=== PATIENT | male | born 1940 | race Caucasian/White ===

== ENCOUNTER 2016-12-17 13:55 | Outpatient (CLI) | payer MEDICARE, BC | END 2016-12-17 23:59 | DX: E87.1 Hypo-osmolality and hyponatremia (principal); R97.20 Elevated prostate specific antigen [PSA]; F10.99 Alcohol use, unspecified with unspecified alcohol-induced disorder; E78.5 Hyperlipidemia, unspecified ==

== ENCOUNTER 2016-12-18 12:25 | Outpatient (CLI) | payer MEDICARE, BC | END 2016-12-18 12:26 | disposition home or self-care (01) | DX: R97.20 Elevated prostate specific antigen [PSA] (principal) ==

== ENCOUNTER 2017-04-23 12:00 | Inpatient (IN) | payer MEDICARE, BC ==
--- NOTE | 2017-04-23 12:39 | ED Physician Documentation ---
PD HPI SYNCOPE - Stated complaint Stated Complaint: SYNCOPE - Chief complaint Chief Complaint: General - History obtained from History obtained from: Patient, Family - History of Present Illness Witnessed: Witnessed Timing - onset: How many hours ago (2) Duration: Seconds (3-5) Preceding symptoms: None Associated symptoms: None. No: Seizure, Incontinant of urine, Incontinant of stool, Headache, Vision changes, Chest pain, Palpitations, Diaphoresis, Dyspnea , Nausea / vomiting, Abdominal pain Contributing factors: Other (eating breakfast) Injury occurred: Fell (head fell onto table). 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 This was witnessed by his . Lasted 3-5 seconds. No prodrome. States he has passed out twice before in his life. 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 He was recently changed from lisinopril to losartan for his blood pressure. He was changed because he has a chronic dry cough. Patient also states that he had a carotid endarterectomy on the left side approximately 2 years ago. Denies any history of heart problems. Review of Systems Ten Systems: 10 systems reviewed and negative Constitutional: denies: Fever, Chills Eyes: denies: Loss of vision, Decreased vision, Photophobia Nose: denies: Rhinorrhea / runny nose, Congestion Throat: denies: Sore throat Cardiac: denies: Chest pain / pressure Respiratory: reports: Cough (Chronic, dry, unchanged) GI: denies: Abdominal Pain, Nausea, Vomiting, Diarrhea Skin: denies: Rash Musculoskeletal: denies: Neck pain, Back pain Neurologic: denies: Focal weakness, Numbness, Headache PD PAST MEDICAL HISTORY - Past Medical History Past Medical History: Yes Cardiovascular: Hypertension, High cholesterol Respiratory: None Endocrine/Autoimmune: None GI: Colon polyps : Benign prostate hypertrophy HEENT: None Psych: None Musculoskeletal: None Derm: None - Past Surgical History Past Surgical History: Yes General: Appendectomy, Colonoscopy, Other Ortho: Other - Present Medications Home Medications: Ambulatory Orders Medication Instructions Recorded Confirmed Aspirin [Aspir 81] 81 mg PO QPM 12/13/13 04/23/17 Finasteride 5 mg PO DAILY 12/13/13 04/23/17 Losartan [Cozaar] 100 mg PO QPM 04/23/17 04/23/17 Propranolol HCl [Propranolol HCl 160 mg PO DAILY 04/23/17 04/23/17 ER] Simvastatin 10 mg PO QPM 04/23/17 04/23/17 hydroCHLOROthiazide [Hydrodiuril] 25 mg PO DAILY 04/23/17 04/23/17 - Allergies Allergies/Adverse Reactions: Allergies Allergy/AdvReac Type Severity Reaction Status Date / Time No Known Drug Allergies Allergy Verified 04/23/17 12:15 - Social History Does the pt smoke?: No Smoking Status: Never smoker Does the pt drink ETOH?: Yes ETOH Use: Beer Does the pt have substance abuse?: No - Immunizations Immunizations are current?: Yes - POLST Patient has POLST: No PD ED PE NORMAL - Vitals Vital signs reviewed: Yes - General General: Alert and oriented X 3, Well developed/nourished - HEENT HEENT: PERRL, Moist mucous membranes - Neck Neck: Supple, no meningeal sign, No JVD, No bruit - Cardiac Cardiac: RRR, No murmur, No gallop, No rub, Strong equal pulses - Respiratory Respiratory: No respiratory distress, Clear bilaterally - Abdomen Abdomen: Soft, Non tender, Non distended - Back Back: No CVA TTP, No spinal TTP - Derm Derm: Warm and dry - Extremities Extremities: No tenderness to palpate, Normal ROM s pain, No calf tenderness / cord - Neuro Neuro: Alert and oriented X 3, brim and crown presser 2-12 intact, No motor deficit, No sensory deficit, Normal speech - Psych Psych: Normal mood, Normal affect Results - Vitals Vitals: Vital Signs - 24 hr 04/23/17 04/23/17 04/23/17 12:05 12:59 14:05 Temperature 36.7 C Heart Rate 68 71 62 Heart Rate [ Brachial] Respiratory 15 17 Rate Blood Pressure 192/96 H 164/77 H 164/74 H Blood Pressure [Left Brachial artery] O2 Saturation 99 95 95 04/23/17 04/23/17 15:23 16:37 Temperature 36.6 C Heart Rate 65 Heart Rate [ 61 Brachial] Respiratory 17 20 Rate Blood Pressure 173/82 H Blood Pressure 166/91 H [Left Brachial artery] O2 Saturation 96 99 Oxygen O2 Source Room air - EKG (time done) 1233 Rate: Rate (enter#) (70) Rhythm: NSR [place]: Normal Intervals: 1st degree AVB QRS: Normal Ischemia: Normal ST segments, Q waves (III, aVF) - Labs Labs: Laboratory Tests 04/23/17 04/23/17 04/23/17 12:55 12:55 12:55 WBC 6.5 RBC 4.47 L Hgb 14.6 Hct 41.5 L MCV 92.7 MCH 32.7 H MCHC 35.2 RDW 12.4 Plt Count 222 MPV 7.3 L Neut # 4.6 Lymph # 0.9 L [place] # 0.5 Eos # 0.4 Baso # 0.1 Absolute Nucleated RBC 0.00 Nucleated RBCs 0.0 Sodium 130 L Potassium 4.2 Chloride 94 L Carbon Dioxide 28 Anion Gap 8.0 BUN 13 Creatinine 1.0 Estimated GFR (MDRD) 72 L Glucose 117 H Calcium 9.0 Total Bilirubin 0.7 AST 18 ALT 15 Alkaline Phosphatase 57 Troponin I < 0.04 Total Protein 6.1 L Albumin 3.7 Globulin 2.4 Albumin/Globulin Ratio 1.5 Lipase 31 Urine Color Urine Clarity Urine pH Ur Specific [place] Urine Protein Urine Glucose (UA) Urine Ketones Urine Occult Blood Urine Nitrite Urine Bilirubin Urine Urobilinogen Ur Leukocyte Esterase Ur Microscopic Review Urine Culture Comments 04/23/17 13:21 WBC RBC Hgb Hct MCV MCH MCHC RDW Plt Count MPV Neut # Lymph # [place] # Eos # Baso # Absolute Nucleated RBC Nucleated RBCs Sodium Potassium Chloride Carbon Dioxide Anion Gap BUN Creatinine Estimated GFR (MDRD) Glucose Calcium Total Bilirubin AST ALT Alkaline Phosphatase Troponin I Total Protein Albumin Globulin Albumin/Globulin Ratio Lipase Urine Color YELLOW Urine Clarity CLEAR Urine pH 6.5 Ur Specific [place] 1.010 Urine Protein NEGATIVE Urine Glucose (UA) NEGATIVE Urine Ketones NEGATIVE Urine Occult Blood NEGATIVE Urine Nitrite NEGATIVE Urine Bilirubin NEGATIVE Urine Urobilinogen 0.2 (NORMAL) Ur Leukocyte Esterase NEGATIVE Ur Microscopic Review NOT INDICATED Urine Culture Comments NOT INDICATED - Rads (name of study) cxr Radiology: Prelim report reviewed, EMP read contemporaneously, See rad report ( No acute disease) PD MEDICAL DECISION MAKING - ED course Complexity details: reviewed old records, reviewed results, re-evaluated patient , considered differential, d/w patient, d/w family, d/w wine consultant ED course: Patient is a 77-year-old gentleman who presents to the emergency department after a syncopal event today. There was no prodrome prior to the syncope. No chest pain. No palpitations. His EKG shows a first-degree AV block. No arrhythmias noted on telemetry here. No acute laboratory issues to explain his symptoms. Did recently change from lisinopril to losartan. Given his lack of prodrome, age and comorbidities, I feel it is reasonable to place him in observation in the hospital. He may benefit from a carotid ultrasound as well. Discussed the case with Dr. Rodriguez, hospitalist who accepts. This document was made in part using voice recognition software. While efforts are made to proofread this document, sound alike and grammatical errors may occur. Departure - Departure Disposition: ED Place in Observation Clinical Impression: Syncope Qualifiers: Syncope type: unspecified Qualified Code(s): R55 - Syncope and collapse Hypertension Qualifiers: Hypertension type: essential hypertension Qualified Code(s): I10 - Essential ( primary) hypertension Condition: Good Discharge Date/Time: 04/23/17 16:06
[2017-04-23 13:03] LABS: BASOPHILS # (AUTO) 0.1 10^3/uL (0.0-0.1); BASOPHILS % (AUTO) 1.2 %; EOSINOPHILS # (AUTO) 0.4 10^3/uL (0.0-0.7); EOSINOPHILS % (AUTO) 5.7 %; HCT - HEMATOCRIT 41.5 % (42.0-52.0); HGB - HEMOGLOBIN 14.6 g/dL (14.0-18.0); LYMPHOCYTES # (AUTO) 0.9 10^3/uL (1.5-3.5); LYMPHOCYTES % (AUTO) 13.4 %; MEAN CORPUSCULAR HEMOGLOBIN 32.7 pg (27.0-31.0); MEAN CORPUSCULAR HGB CONC 35.2 g/dL (32.0-36.0); MEAN CORPUSCULAR VOLUME 92.7 fL (80.0-94.0); MEAN PLATELET VOLUME 7.3 fL (7.4-11.4); MONOCYTES # (AUTO) 0.5 10^3/uL (0.0-1.0); MONOCYTES % (AUTO) 8.4 %; NEUTROPHILS # (AUTO) 4.6 10^3/uL (1.5-6.6); NEUTROPHILS % (AUTO) 71.3 %; RED BLOOD COUNT 4.47 10^6/uL (4.70-6.10); RED CELL DISTRIBUTION WIDTH 12.4 % (12.0-15.0); UNCORRECTED WHITE BLOOD COUNT 6.5 x10^3/uL; WHITE BLOOD COUNT 6.5 x10^3/uL (4.8-10.8)
[2017-04-23 13:21] LABS: ALBUMIN/GLOBULIN RATIO 1.5 (1.0-2.2); BILIRUBIN,TOTAL 0.7 mg/dL (0.2-1.0); POTASSIUM 4.2 mmol/L (3.5-5.0); TOTAL PROTEIN 6.1 g/dL (6.7-8.2)
[2017-04-23 13:32] LABS: BILIRUBIN,URINE NEGATIVE (NEGATIVE); PH,URINE 6.5 PH (5.0-7.5)
[2017-04-23 13:48] LABS: UA CHARGE (STRIP ONLY) YES; UR CULTURE IF IND NOT INDICATED
--- NOTE | 2017-04-23 14:17 | XRAY Preliminary Report ---
Exam: XR Chest 1 View IMPRESSION: No acute intrathoracic plain film abnormality. [facility] SITE ID: [id number]
--- NOTE | 2017-04-23 14:19 | XRAY Report ---
EXAM: CHEST RADIOGRAPHY EXAM DATE: 04/23/2017 01:55 PM. CLINICAL HISTORY: Cough, syncope. COMPARISON: None. TECHNIQUE: 1 view. FINDINGS: Lungs/Pleura: No focal opacities evident. No pleural effusion. No pneumothorax. Mediastinum: Within exam limitations, cardiomediastinal contour is normal. Other: None. IMPRESSION: No acute intrathoracic plain film abnormality. [facility] Referring Provider Line: [phone] SITE ID: [id number]
[2017-04-23] MEDS ORDERED: SODIUM CHLORIDE FLUSH 0.9% 10 ML SYRINGE IVP PRN (15:19)
[2017-04-23] MEDS ORDERED: HYDROcod/ACETAM 5/325 MG TABLET PO PRN (15:19)
[2017-04-23] MEDS ORDERED: ACETAMINOPHEN 325 MG TABLET PO PRN (15:19)
[2017-04-23] MEDS ORDERED: ONDANSETRON 4 MG/2 ML VIAL IVP PRN (15:19)
[2017-04-23] MEDS ORDERED: IOPAMIDOL-300 100 ML VIAL IVP ONE (16:29)
--- NOTE | 2017-04-23 17:13 | CT Preliminary Report ---
Exam: CT Neck Angio IMPRESSION: 1. Right carotid circulation: Moderate atherosclerotic calcification at the CCA bifurcation. Moderate , 50%, stenosis is seen at the origin of the ICA. 2. Left carotid circulation: Postoperative change from left carotid endarterectomy is seen. No signif icant stenosis. 3. Right vertebral artery circulation: Right vertebral artery is dominant and widely patent. 4. 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 Nonopacification of the V1 and proximal V2 segment is seen. Opacification of small caliber the tube , V3, and V4 segments is seen. This could be secondary to retrograde filling from the right VA versus collateral opacification and antegrade flow. (By report this is apparently new compared to prior ult rasound study). 5. Intracranial circulation: Mild stenosis is seen at the junction of the right vertebral artery and basilar artery. Note neither P-comm is evident. Critical result: Findings are discussed with referring physician, Dr. Eleno Rodriguez, on 04/23/2017 at 1703 hrs. [facility] SITE ID: [id number]
--- NOTE | 2017-04-23 17:16 | CT Report ---
EXAM: CT ANGIOGRAM NECK EXAM DATE: 04/23/2017 04:29 PM. CLINICAL HISTORY: Syncope. COMPARISON: Report of carotid Doppler ultrasound 07/03/2015. TECHNIQUE: Routine axial helical imaging was performed from the skull base through the aortic arch. I V Contrast: 100 cc [id number]. Reconstructions: Routine multiplanar 3D MIP reconstructions. Evaluatio n of arterial stenosis is based on a NASCET method of measurement. In accordance with CT protocol optimization, one or more of the following dose reduction techniques w ere utilized for this exam: automated exposure control, adjustment of mA and/or KV based on patient s ize, or use of iterative reconstructive technique. FINDINGS: Mild tortuosity and calcification is seen at the aortic arch. Normal three-vessel branching is seen off the aortic arch. Mild atherosclerotic calcification is seen at the origin of the left common carotid artery. Vascular calcifications are seen at the bifurcation of the right brachiocephalic artery. Great vessels off the arch are patent. Right Carotid: The CCA is patent and unremarkable. Moderate atherosclerotic intimal thickening and ca lcification is seen at the CCA bifurcation and origin of the ICA. Moderate, 50%, stenosis is seen at the ICA origin. Distal to this the cervical ICA is patent and unremarkable. No dissection. The ECA demonstrates atherosclerotic calcification at its origin with mild stenosis. The ECA is paten t. Left Carotid: The CCA is patent and unremarkable. Postoperative change from CEA is evident. Carotid b ifurcation is patent and unremarkable. Cervical ICA is unremarkable. No dissection. The ECA is patent and unremarkable. Vertebrals: Right vertebral artery: Widely patent and unremarkable. No significant atherosclerotic change. No dis section. Left vertebral artery: Occluded at its origin. Non-opacification of the V1 and proximal V2 segments. Opacification of small caliber distal V2, V3, and V4 segments is seen. It is unclear whether this is secondary to collateral antegrade flow or retrograde filling. Intracranial Circulation: No stenoses or aneurysms of the visualized vessels. Moderate vascular calc ifications are seen in the cavernous ICA. No significant stenosis. Neither P-comm is identified. The right vertebral artery is dominant forming the basilar artery. Mild stenosis is seen at the junct ion of the right vertebral artery and basilar artery. Distal to this the basilar artery and bifurcati on is patent and unremarkable. Intracranial left vertebral artery is small in caliber. Other: The lung apices are clear. The muscle and fascial planes of the neck are unremarkable. Mild cervical spondylosis is present. IMPRESSION: 1. Right carotid circulation: Moderate atherosclerotic calcification at the CCA bifurcation. Moderate , 50%, stenosis is seen at the origin of the ICA. 2. Left carotid circulation: Postoperative change from left carotid endarterectomy is seen. No signif icant stenosis. 3. Right vertebral artery circulation: Right vertebral artery is dominant and widely patent. 4. 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 Nonopacification of the V1 and proximal V2 segment is seen. Opacification of small caliber the tube , V3, and V4 segments is seen. This could be secondary to retrograde filling from the right VA versus collateral opacification and antegrade flow. (By report this is apparently new compared to prior ult rasound study). 5. Intracranial circulation: Mild stenosis is seen at the junction of the right vertebral artery and basilar artery. Note neither P-comm is evident. Critical result: Findings are discussed with referring physician, Dr. Eleno Rodriguez, on 04/23/2017 at 1703 hrs. [facility] Referring Provider Line: [phone] SITE ID: [id number]
--- NOTE | 2017-04-23 17:29 | HISTORY & PHYSICAL EXAMINATION ---
DATE OF ADMISSION: 04/23/2017 PRIMARY CARE PHYSICIAN: Isael King D.O. CHIEF COMPLAINT: The patient's chief complaint is passing out. IDENTIFYING INFORMATION: The patient and his , Kiley, are present and give the bulk of the history. They both appear cogent, consistent, and thorough. The is able to describe a portion of the history that he cannot because he is passed out. The patient's history is supplemented by the hand-off from the Emergency Department Physician, Dereck Casas M.D., as well as personal review of the past medical records and the data collected during this visit. All were used in the evaluation of this person in the preparation of this document. HISTORY OF PRESENT ILLNESS: He and his , Kiley, were sitting at breakfast around 10:15 and had taken about half their breakfast. They were talking. She noted movement and turned to see her starting to go forward in the chair while he was sitting. She got out of her chair, hurried over, and grabbed him by the shoulders from behind to pull him back. She did prevent him from his face hitting the table. He shook violently, according to her. He was unconscious. In a few seconds, he responded to her name, the shaking also ceased, and he was able to answer questions. He thought he was just having a dream. He did not remember the event or the dream, but he says that is not unusual. He does not remember his dreams. REVIEW OF SYSTEMS: There was a complete review of systems which was negative, except as noted above. The patient says she does have problems chronically with urination and nocturia. There is nothing new. Specifically, he denies any fever, chills, sweats, cough, and sore throat. No nausea, vomiting, or diarrhea. He has had no headache or numbness. The patient has chronic back pain. PAST MEDICAL HISTORY Remarkable for: 1. Hypertension. 2. Hypercholesterolemia. 3. BPH. 4. Also colon polyps. PAST SURGICAL HISTORY: The patient's past surgeries are positive for an appendectomy and colonoscopy. He has had a carotid endarterectomy. ALLERGIES: NONE KNOWN. MEDICATIONS 1. Aspirin 81 mg a day. 2. Finasteride 5 mg a day. 3. Hydrochlorothiazide 12.5 mg daily. 4. Simvastatin 40 mg a day. 5. Losartan 100 mg a day. 6. Naproxen 500 mg a day. 7. Propranolol ER 200 mg daily. PERSONAL AND SOCIAL HISTORY: The patient was born in 1940 in [facility]. His parents were missionaries. He lived about a year and then moved to [place] with his mother and aunt. Then, his father was killed when the Germans took over the country. The patient subsequently moved to [place] and went to high school. He graduated [employer] in [facility]. He subsequently went to [employer] for two years and then to [employer]. 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 The patient smoked a pack a day until 1989, when he moved up to [place], and cigarettes were too expensive. The patient drinks beer. He says not daily, but told the nurse that it was daily three to six beers. FAMILY HISTORY: The patient's family history is negative for diabetes, positive for cancer, and positive for heart disease. PHYSICAL EXAMINATION VITAL SIGNS: Temperature 36.7. Pulse 68. Respirations 15. Blood pressure 192 /96 and later 164/76. The patient's O2 saturation is 95% on room air. CONSTITUTIONAL: A well-developed and well-nourished male who appears younger than stated age. He is in no acute distress. EYES: Extraocular movements are within normal limits. PERRL. Nonicteric. MOUTH AND THROAT: Moist mucous membranes. No other pathology. NECK: No lymphadenopathy. No bruits. No JVD. No thyromegaly. CHEST WALL: Nontender. Symmetric. HEART: Sinus rhythm. No murmur, rubs, or clicks heard. LUNGS: Clear. Good air movement bilaterally. ABDOMEN: Thick abdominal wall. Soft and nontender. No hepatosplenomegaly noted. RECTAL: Exam was not done. GENITAL: Exam was not done. EXTREMITIES: No edema. VASCULAR: On vascular exam, he has no palpable pulses in the posterior tibial. The patient does have normal capillary refill. No cyanosis. NEUROLOGICAL: Cognition intact. Cranial nerves intact. Motor intact. The patient's gait is not tested. SKIN: The patient's skin exam has no suspicious lesions or dermatitis on limited exam. DIAGNOSTIC DATA: He had an EKG that showed a normal sinus rhythm with a first degree AV block. No abnormalities of QRS, ST, or T waves. He does have Q- waves in III and F. The patient's white count was 6.5, hemoglobin and hematocrit 14 and 41, and platelets were 222. The patient's sodium was 130, potassium was 4.2, the patient's chloride was 94, CO2 was 28, BUN 13, creatinine 1.0, glucose 117, and calcium 9.0. Normal liver enzymes. Troponin was less than 0.04. Albumin was 3.7. The patient's urine revealed a specific gravity of 1.010, and pH was 6.5. Microscopic was negative. PATIENT SUMMARY: This is a 77-year-old male who at the breakfast table passed out for a short time. The patient has hypertension, BPH, and high cholesterol. He has had no recent syncopal episodes. He did have one two to three years ago. At that time, he had a prodrome. The patient is placed in observation for further workup. DIAGNOSES The diagnoses are: 1. Syncope. 2. Hypertension. 3. BPH. 4. Hypercholesterolemia. DISCUSSION AND DECISION MAKING 1. The etiology of the syncope is uncertain and likely to be a seizure, and less likely to be a vagal or vascular episode. Therefore, the most likely is an arrhythmia. The patient will have telemetry, a CT angiogram, and an echocardiogram. 2. Hypertension: Medications will be adjusted as needed to control his blood pressure, with systolic blood pressure less than 150. 3. BPH: His usual home medicines will be continued. No other workup at this time. 4. Hypercholesterolemia: We will continue his home statin. 5. The patient will also get an ESR in the unlikely event that this is the result of an inflammatory condition such as temporal arteritis or PMR. He will also get a TSH for possible thyroid. He has a mildly elevated glucose, so an A1c will also be ordered. This is not felt to be the etiology for his syncope, however. HOSPITAL ISSUES 1. CODE STATUS: HE MAINTAINS A FULL CODE STATUS. 2. Venous thromboembolism prophylaxis, which will be Lovenox subcutaneous. 3. Diet will be a regular diet at this point. 4. His tubes and lines will be just peripheral IV presently. 5. Hospital status: The patient will be placed in observation, and the expectation is less than two nights for discharge. 6. Estimated length of stay is less than two nights. 7. Disposition, which is expected to be home. JOB #: [id number] EXT JOB #:[id number] MTDJack
[2017-04-23] MEDS: SODIUM CHLORIDE FLUSH 0.9% 10 ML SYRINGE IVP SCH (20:08)
[2017-04-23] MEDS ORDERED: ATORVASTATIN 10 MG TABLET PO SCH (21:00)
[2017-04-23] MEDS ORDERED: GLUCAGON 1 MG/ML VIAL IVP SCH (21:14)
[2017-04-23] MEDS ORDERED: PROMETHAZINE 12.5 MG SUPP PR PRN (21:17)
[2017-04-23] MEDS ORDERED: ONDANSETRON 4 MG/2 ML VIAL IVP SCH (22:00)
[2017-04-23] MEDS ORDERED: WATER FOR INJECTION,STERILE 10 ML ONE (22:25)
[2017-04-24 06:30] LABS: BASOPHILS % (AUTO) 0.6 %; EOSINOPHILS # (AUTO) 0.4 10^3/uL (0.0-0.7); EOSINOPHILS % (AUTO) 5.8 %; HGB - HEMOGLOBIN 14.7 g/dL (14.0-18.0); LYMPHOCYTES # (AUTO) 1.4 10^3/uL (1.5-3.5); MEAN CORPUSCULAR HEMOGLOBIN 32.8 pg (27.0-31.0); MEAN CORPUSCULAR HGB CONC 34.9 g/dL (32.0-36.0); MEAN CORPUSCULAR VOLUME 93.8 fL (80.0-94.0); MEAN PLATELET VOLUME 7.2 fL (7.4-11.4); MONOCYTES # (AUTO) 0.7 10^3/uL (0.0-1.0); MONOCYTES % (AUTO) 9.8 %; NEUTROPHILS # (AUTO) 4.3 10^3/uL (1.5-6.6); NEUTROPHILS % (AUTO) 62.8 %; RED BLOOD COUNT 4.48 10^6/uL (4.70-6.10); RED CELL DISTRIBUTION WIDTH 12.6 % (12.0-15.0); UNCORRECTED WHITE BLOOD COUNT 6.8 x10^3/uL; WHITE BLOOD COUNT 6.8 x10^3/uL (4.8-10.8)
[2017-04-24 06:41] LABS: ALBUMIN/GLOBULIN RATIO 1.6 (1.0-2.2); BILIRUBIN,TOTAL 0.8 mg/dL (0.2-1.0); CALCIUM 8.7 mg/dL (8.5-10.3); CREATININE 0.8 mg/dL (0.6-1.2); MAGNESIUM 1.9 mg/dL (1.7-2.8); POTASSIUM 3.8 mmol/L (3.5-5.0); TOTAL PROTEIN 5.8 g/dL (6.7-8.2)
[2017-04-24] MEDS: SODIUM CHLORIDE FLUSH 0.9% 10 ML SYRINGE IVP SCH (06:43)
[2017-04-24 07:05] LABS: HEMOGLOBIN A1C 0.57 g/dL
--- NOTE | 2017-04-24 08:49 | PROVIDER PROGRESS NOTE ---
Assessment/Plan - Problem List (1) Syncope Qualifiers: Syncope type: unspecified Qualified Code(s): R55 - Syncope and collapse Assessment/Plan: He had no syncopal episodes last night. He did have several sinus pauses with eating which the Inderal maybe a significant contributing factor. (2) Arrhythmia, bulmaro Assessment/Plan: He had the sinus pauses concurrent with the swallowing. He has had a long time problem with this. He was noted to have it when swallowing water as well. Inderal has been stopped. (3) Dysphagia Assessment/Plan: Will do esophagram and clinical swallow eval to determine the etiology of the problem. Dario is quite irritable this am which may be the result of no alcohol overnight. He may need some of the W/U as outpatient. - Current Meds Current Meds: Current Medications Generic Name Dose Route Start Last Admin Trade Name Freq PRN Reason Stop Dose Admin Atorvastatin Calcium 20 mg 04/23/17 21:00 04/23/17 20:08 Lipitor PO 20 mg QPM ALY Administration Sodium Chloride 10 ml 04/23/17 22:00 04/24/17 06:43 Normal Saline Flush 0.9% IVP 10 ml Q8HR ALY Administration - Lab Result Fish Bone Diagrams: 04/24/17 06:20 04/24/17 06:20 - Additional Planning My Orders: My Active Orders 04/24/17 08:21 Esophogram [FL] Routine Clinical Swallow Eval w/Modified ST [ST] Routine 04/24/17 08:22 NPO [DIET] Subjective - Subjective Patient Reports: Resting Comfortably Nursing Reports: No Complaints Objective Vital Signs: Vital Signs - 24 hr 04/23/17 04/23/17 04/23/17 20:55 22:15 22:30 Temperature 36.3 C L Heart Rate [ 64 68 69 Brachial] Respiratory 18 17 18 Rate Blood Pressure 156/89 H 168/82 H 163/76 H [Left Brachial artery] O2 Saturation 94 96 96 04/23/17 04/23/17 04/23/17 22:45 23:00 23:59 Temperature 36.8 C Heart Rate [ 69 70 67 Brachial] Respiratory 17 19 17 Rate Blood Pressure 161/80 H 157/69 H 143/67 H [Left Brachial artery] O2 Saturation 95 94 94 04/24/17 04/24/17 04/24/17 01:00 02:00 03:00 Temperature 36.8 C Heart Rate [ 62 66 61 Brachial] Respiratory 14 16 14 Rate Blood Pressure 135/75 H 126/65 131/71 H [Left Brachial artery] O2 Saturation 92 99 95 04/24/17 04/24/17 04/24/17 04:00 05:00 06:00 Temperature Heart Rate [ 59 L 67 69 Brachial] Respiratory 13 11 L 14 Rate Blood Pressure 123/59 L 161/77 H 122/63 [Left Brachial artery] O2 Saturation 93 93 96 04/24/17 04/24/17 07:00 08:00 Temperature 36.7 C Heart Rate [ 69 62 Brachial] Respiratory 17 15 Rate Blood Pressure 161/85 H 130/60 [Left Brachial artery] O2 Saturation 95 94 Oxygen O2 Source Room air I&O (Last 24 Hrs): Intake and Output Totals x24h 04/22/17 04/23/17 04/24/17 23:59 23:59 23:59 Intake Total 430 480 Output Total 1125 Balance 430 -645 General: Alert, Cooperative HEENT: PERRLA, EOMI Neck: No JVD, No thyromegaly Neuro: Alert, Oriented Times 3 Cardiovascular: Regular rate, No murmurs Respiratory: No respiratory distress, Breath sounds nml Abdomen: Soft, No tenderness Extremities: No clubbing, No edema Skin: No rashes, No breakdown - Results Results: Laboratory Results WBC 6.8 x10^3/uL (4.8-10.8) 04/24/17 06:20 RBC 4.48 10^6/uL (4.70-6.10) L 04/24/17 06:20 Hgb 14.7 g/dL (14.0-18.0) 04/24/17 06:20 Hct 42.0 % (42.0-52.0) 04/24/17 06:20 MCV 93.8 fL (80.0-94.0) 04/24/17 06:20 MCH 32.8 pg (27.0-31.0) H 04/24/17 06:20 MCHC 34.9 g/dL (32.0-36.0) 04/24/17 06:20 RDW 12.6 % (12.0-15.0) 04/24/17 06:20 Plt Count 194 10^3/uL (130-450) 04/24/17 06:20 MPV 7.2 fL (7.4-11.4) L 04/24/17 06:20 Neut # 4.3 10^3/uL (1.5-6.6) 04/24/17 06:20 Lymph # 1.4 10^3/uL (1.5-3.5) L 04/24/17 06:20 [place] # 0.7 10^3/uL (0.0-1.0) 04/24/17 06:20 Eos # 0.4 10^3/uL (0.0-0.7) 04/24/17 06:20 Baso # 0.0 10^3/uL (0.0-0.1) 04/24/17 06:20 Absolute Nucleated RBC 0.00 x10^3/uL 04/24/17 06:20 Nucleated RBCs 0.0 /100WBC 04/24/17 06:20 ESR 5 mm/Hr (0-20) 04/24/17 06:20 Sodium 132 mmol/L (135-145) L 04/24/17 06:20 Potassium 3.8 mmol/L (3.5-5.0) 04/24/17 06:20 Chloride 97 mmol/L (101-111) L 04/24/17 06:20 Carbon Dioxide 27 mmol/L (21-32) 04/24/17 06:20 Anion Gap 8.0 (6-13) 04/24/17 06:20 BUN 12 mg/dL (6-20) 04/24/17 06:20 Creatinine 0.8 mg/dL (0.6-1.2) 04/24/17 06:20 Estimated GFR (MDRD) 94 (>89) 04/24/17 06:20 Glucose 98 mg/dL (70-100) 04/24/17 06:20 Glycated Hemoglobin 5.3 % (4.6-6.2) 04/24/17 06:20 Estim Average Glucose 105 (70-100) H 04/24/17 06:20 Calcium 8.7 mg/dL (8.5-10.3) 04/24/17 06:20 Magnesium 1.9 mg/dL (1.7-2.8) 04/24/17 06:20 Total Bilirubin 0.8 mg/dL (0.2-1.0) 04/24/17 06:20 AST 15 IU/L (10-42) 04/24/17 06:20 ALT 15 IU/L (10-60) 04/24/17 06:20 Alkaline Phosphatase 49 IU/L (42-121) 04/24/17 06:20 Troponin I < 0.04 ng/mL (<0.49) 04/24/17 06:20 Total Protein 5.8 g/dL (6.7-8.2) L 04/24/17 06:20 Albumin 3.6 g/dL (3.2-5.5) 04/24/17 06:20 Globulin 2.2 g/dL (2.1-4.2) 04/24/17 06:20 Albumin/Globulin Ratio 1.6 (1.0-2.2) 04/24/17 06:20 Lipase 31 U/L (22-51) 04/23/17 12:55 TSH 2.72 uIU/mL (0.34-5.60) 04/24/17 06:20 Urine Color YELLOW 04/23/17 13:21 Urine Clarity CLEAR (CLEAR) 04/23/17 13:21 Urine pH 6.5 PH (5.0-7.5) 04/23/17 13:21 Ur Specific [place] 1.010 (1.002-1.030) 04/23/17 13:21 Urine Protein NEGATIVE mg/dL (NEGATIVE) 04/23/17 13:21 Urine Glucose (UA) NEGATIVE mg/dL (NEGATIVE) 04/23/17 13:21 Urine Ketones NEGATIVE mg/dL (NEGATIVE) 04/23/17 13:21 Urine Occult Blood NEGATIVE (NEGATIVE) 04/23/17 13:21 Urine Nitrite NEGATIVE (NEGATIVE) 04/23/17 13:21 Urine Bilirubin NEGATIVE (NEGATIVE) 04/23/17 13:21 Urine Urobilinogen 0.2 (NORMAL) E.U./dL (NORMAL) 04/23/17 13:21 Ur Leukocyte Esterase NEGATIVE (NEGATIVE) 04/23/17 13:21 Ur Microscopic Review NOT INDICATED 04/23/17 13:21 Urine Culture Comments NOT INDICATED 04/23/17 13:21 - Procedures Procedures: Procedures ENDOSC POLYPECTOMY OF LG INTEST (12/13/13) EXCISION OF ASCENDING COLON, ENDO (02/21/16)
[2017-04-24] MEDS ORDERED: PROPRANOLOL ER 60 MG CAPSULE PO SCH (09:00)
[2017-04-24] MEDS ORDERED: POLYETHYLENE GLYCOL 3350 17 GM PACKET PO SCH (09:00)
[2017-04-24] MEDS ORDERED: ENOXAPARIN 40 MG/0.4 ML SYRINGE SUBQ SCH (09:00)
[2017-04-24] MEDS ORDERED: ASPIRIN EC 81 MG TABLET PO SCH (09:00)
[2017-04-24] MEDS ORDERED: hydroCHLOROthiazide 12.5 MG CAPSULE PO SCH (09:00)
[2017-04-24] MEDS ORDERED: FINASTERIDE 5 MG TABLET PO SCH (09:00)
[2017-04-24] MEDS ORDERED: LOSARTAN 50 MG TABLET PO SCH (09:00)
[2017-04-24] MEDS ORDERED: PROPRANOLOL ER 80 MG CAPSULE PO SCH ×2 (09:00)
[2017-04-24] MEDS ORDERED: SIMETHICONE/SOD BICARB/CIT AC 1 EACH PACKET PO ONE (11:56)
[2017-04-24] MEDS ORDERED: BARIUM SULFATE 135 ML BOTTLE PO ONE (11:56)
[2017-04-24] MEDS ORDERED: BARIUM SULFATE 148 GM POWDER PO ONE (11:56)
--- NOTE | 2017-04-24 12:26 | XRAY Report ---
BARIUM SWALLOW: 04/24/2017 CLINICAL HISTORY: This is a 77-year-old male with dysphagia. Patient heart rate falls when swallowi ng solids and liquids. Patient states it is an ongoing problem and he makes sure he chews his food w ell. FINDINGS: Pharynx and cervical esophagus was studied in detail in the upright position. No signific ant aspiration was noted. The cricopharyngeus sphincter muscle functions normally. Examination is n egative for esophageal webs or Zenker's diverticula. Surgical clips are seen along the lateral aspect of the soft tissues of the left neck. There are no masses intruding upon the pharynx, hypopharynx, or cervical esophagus. Air contrast images of the esophagus are normal. No significant hiatal hernia was seen. Definite gastroesophageal reflux was not seen. Esophageal mo tility shows no significant abnormality. Fluoroscopy time was 3 minutes, 57 seconds; 62 images were recorded. IMPRESSION: NO SIGNIFICANT ABNORMALITY NOTED. JOB #: [id number] EXT JOB #:[id number]
--- NOTE | 2017-04-24 13:55 | Discharge Plan ---
Discharge Plan Disposition: 01 Home, Self Care Condition: Good Diet: Regular Activity Restrictions: Activity as Tolerated Shower Restrictions: No Driving Restrictions: No Weight Bearing: Full Weight Additional Instructions or Follow Up instructions: Resume your usual activities. It is recommended you not take any Beta Blockers (Propanolol, Toprol Atenolol unless your PCP Dr. King agrees.) CHEW YOUR FOOD WELL BEFORE YOU SWALLOW MAKE AN APPT TO SEE YOUR PCP IN THE NEXT 7-10 DAYS. Thank you, Dr. Rodriguez No Smoking: If you smoke, Please STOP! Call for help. Follow-up with: Isael King DO [Primary Care Provider] - 1 Week
[2017-04-24 14:11] VITALS: BP 161/91
--- NOTE | 2017-04-27 07:15 | DISCHARGE SUMMARY ---
DATE OF ADMISSION: 04/23/2017 DATE OF DISCHARGE: 04/24/2017 PRIMARY CARE PHYSICIAN: Isael King D.O. ADMISSION DIAGNOSES 1. Syncope. 2. Hypertension. 3. Benign prostatic hypertrophy. 4. Hypercholesterolemia. DISCHARGE DIAGNOSES 1. Syncope secondary to cardiac bradyarrhythmia. 2. Hypertension. 3. Benign prostatic hypertrophy. 4. Hypercholesterolemia. SPECIAL PROCEDURES The patient had a neck CTA. Impression: 1. Right carotid circulation moderate atherosclerotic calcification at the CCA bifurcation, moderate 50% stenosis seen in the right at the origin of the ICA. 2. Left carotid circulation postoperative change from left carotid endarterectomy seen. No significant stenosis. 3. Right vertebral artery circulation, right vertebral artery dominant and widely patent. 4. Left vertebral artery circulation. 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 Opacification of small caliber V2, V3, V4 seen. This could be secondary to retrograde filling from right vertebral artery versus collateral opacification anterograde flow. 5. Intracranial circulation, mild stenosis is seen at the junction of the right vertebral artery and basilar artery. Note neither PCOM is evident. The patient's echocardiogram: The patient has an EF of 65% to 70%. Diastolic function is indeterminate. No regional wall motion abnormalities seen. Right ventricle normal in size and function. Left volume is normal. Right atrial size is normal. The aortic valve trileaflet, no evidence of aortic stenosis or aortic regurgitation. Mitral valve, this is no mitral stenosis and trace mitral regurgitation. Pulmonic valve, no significant pulmonic regurgitation, no pulmonic stenosis. Modified barium swallow: No significant abnormality noted. HOSPITAL COURSE AND MANAGEMENT: Initial presentation, hospital emergency evaluation, and hospital plan are well described in the History and Physical, see copy of same. SUMMARY: This is a 77-year-old male who at the breakfast table passed out for a short time, which sounds like a few seconds. The patient has hypertension, BPH, and high cholesterol. He has had no recent syncopal episodes. He did have one 2 or 3 years ago. At that time he had a prodrome. The patient is placed in observation for further workup. The patient had the studies noted above. It was noted in the evening that he was admitted that he had a sinus pause of 3.7 seconds, had recurrent bradycardia into the 37s. This happened while he was swallowing and both with solid foods and liquids. The patient was on propranolol, which he took 200 mg long-acting in the a.m. This was not given to him the following morning, he had no more episodes at breakfast or lunch. The patient had the barium swallow and clinical swallow evaluation, no significant abnormality noted. The patient was very anxious to leave the hospital. Irritable, short tempered. A family conference was held with 2 daughters and . The patient wanted to switch back to his atenolol, was told to stay off the beta-kurtis. PHYSICAL EXAMINATION THE FOLLOWING MORNING VITAL SIGNS: 36.9, 57, 161/91, 19, 97 room air saturation. EYES: EOM within normal limits. PERRL, nonicteric. MOUTH AND THROAT: Moist mucous membranes. No other pathology mouth or pharynx. NECK: No lymphadenopathy, no bruits, JVD. CHEST WALL: Nontender. Symmetric. LUNGS: Clear, good air movement bilaterally. HEART: Sinus rhythm. No murmurs, rubs, clicks. ABDOMEN: Thick abdominal wall. Soft, nontender, normal bowel sounds. No hepatosplenomegaly. VASCULAR: He has 1+ pulses posterior tibial bilateral, normal capillary refill. No cyanosis. NEUROLOGIC: Cognitive intact. Cranial nerves intact. Motor intact. ALLERGIES: NO ALLERGIES. MEDICATIONS FOR HOME 1. Losartan 100 mg at bedtime. 2. Aspirin 81 mg at bedtime. 3. Hydrochlorothiazide 25 mg in the morning. 4. Simvastatin 10 mg at bedtime. 5. Finasteride 5 mg daily. FOLLOWUP: With Dr. King in the next week if he needs additional blood pressure medication. Suggest a calcium channel kurtis, second generation, such as amlodipine. If the patient has another syncopal episode of bradycardia or other bradyarrhythmia, the patient should have further cardiac evaluation, as the beta kurtis may only be a contributing cause. JOB #: [id number] EXT JOB #:[id number] MTDJack
== END 2017-04-24 14:25 | disposition home or self-care (01) | DRG 312 ==
LOC: ED 12:00 → UNDOADMOB 15:19 → MS 15:19 → OBSVTOIN 18:23 → ICU 22:02
PROVIDERS: ADMIT Internal Medicine; ATTEND Internal Medicine
DX: R55 Syncope and collapse (principal); I49.8 Other specified cardiac arrhythmias; I10 Essential (primary) hypertension; I65.21 Occlusion and stenosis of right carotid artery; R35.1 Nocturia; N40.1 Benign prostatic hyperplasia with lower urinary tract symptoms; E78.00 Pure hypercholesterolemia, unspecified; R73.9 Hyperglycemia, unspecified; Z79.82 Long term (current) use of aspirin; Z87.891 Personal history of nicotine dependence; Z86.79 Personal history of other diseases of the circulatory system
CPT/HCPCS: 36415; 70498; 71010; 74220; 80053; 81001; 81003; 83036; 83690; 83735; 84443; 84484; 85025; 85651; 87086; 87150; 93005; 93306; 99284; 99285

== ENCOUNTER 2017-05-26 07:22 | Outpatient (CLI) | payer MEDICARE, BC ==
[2017-05-26 13:58] LABS: BASOPHILS # (AUTO) 0.1 10^3/uL (0.0-0.1); BASOPHILS % (AUTO) 1.2 %; EOSINOPHILS # (AUTO) 0.4 10^3/uL (0.0-0.7); EOSINOPHILS % (AUTO) 6.2 %; HCT - HEMATOCRIT 45.1 % (42.0-52.0); HGB - HEMOGLOBIN 15.5 g/dL (14.0-18.0); LYMPHOCYTES # (AUTO) 1.4 10^3/uL (1.5-3.5); LYMPHOCYTES % (AUTO) 22.8 %; MEAN CORPUSCULAR HEMOGLOBIN 32.5 pg (27.0-31.0); MEAN CORPUSCULAR HGB CONC 34.3 g/dL (32.0-36.0); MEAN CORPUSCULAR VOLUME 94.6 fL (80.0-94.0); MEAN PLATELET VOLUME 8.1 fL (7.4-11.4); MONOCYTES # (AUTO) 0.5 10^3/uL (0.0-1.0); MONOCYTES % (AUTO) 8.7 %; NEUTROPHILS # (AUTO) 3.6 10^3/uL (1.5-6.6); NEUTROPHILS % (AUTO) 61.1 %; NUCLEATED RED BLOOD CELLS AUTO 0.4 /100WBC; RED BLOOD COUNT 4.77 10^6/uL (4.70-6.10); RED CELL DISTRIBUTION WIDTH 12.8 % (12.0-15.0); UNCORRECTED WHITE BLOOD COUNT 5.9 x10^3/uL; WHITE BLOOD COUNT 5.9 x10^3/uL (4.8-10.8)
[2017-05-26 14:22] LABS: PSA FREE 0.32 ng/mL (0.16-2.81)
[2017-05-26 14:23] LABS: PSA TOTAL 4.7 ng/mL (0.000-2.000)
[2017-05-26 14:29] LABS: CALCIUM 8.9 mg/dL (8.5-10.3); CREATININE 0.9 mg/dL (0.6-1.2)
== END 2017-05-26 07:23 | disposition home or self-care (01) ==
LOC: LAB.WCP 07:22
PROVIDERS: ATTEND Psychiatry & Neurology Psychiatry
DX: R55 Syncope and collapse (principal); R97.20 Elevated prostate specific antigen [PSA]
CPT/HCPCS: 36415; 80048; 84154; 85025

== ENCOUNTER 2017-06-18 08:22 | Day surgery (SDC) | payer MEDICARE, BC ==
[~2017-06-18 08:22] MED LIST: BRIMONIDINE 0.2% OPHTH DROPS 5 ML ONE; CYCLOPENTOLATE 1% OPHTH DROPS 2 ML ONE; KETOROLAC 0.45% OPHTH DROPS ONE; PHENYLEPHRINE 2.5% OPHTH 2 ML DROPS ONE; PROPARACAINE 0.5% OPHTH DROPS 15 ML ONE; TIMOLOL 0.5% OPHTH DROPS ONE
[2017-06-18] MEDS ORDERED: LACTATED RINGERS 500 ML IV ONE (08:37)
[2017-06-18] MEDS ORDERED: KETOROLAC 0.45% OPHTH DROPS OPTH ONE (08:40)
[2017-06-18] MEDS ORDERED: PROPARACAINE 0.5% OPHTH DROPS 15 ML OPTH ONE ×2 (08:40→09:29)
[2017-06-18] MEDS ORDERED: CYCLOPENTOLATE 1% OPHTH DROPS 2 ML OPTH ONE (08:40)
[2017-06-18] MEDS ORDERED: PHENYLEPHRINE 2.5% OPHTH 2 ML DROPS OPTH ONE (08:40)
[2017-06-18] MEDS ORDERED: EPINEPHrine 1 MG/ML AMP IVP ONE (09:29)
[2017-06-18] MEDS ORDERED: TRIAMCIN/MOXIFLOX/VANCO 1 ML VIAL IO ONE ×2 (09:29)
[2017-06-18] MEDS ORDERED: BSS/LIDOCAINE/EPINEPHRINE 1 ML SYRINGE IO ONE ×2 (09:29)
[2017-06-18] MEDS ORDERED: BRIMONIDINE 0.2% OPHTH DROPS 5 ML OPTH ONE (09:29)
[2017-06-18] MEDS ORDERED: CHONDR SULF/HYALURONATE SYRINGE IO ONE (09:29)
[2017-06-18] MEDS ORDERED: TIMOLOL 0.5% OPHTH DROPS OPTH ONE (09:29)
[2017-06-18] MEDS ORDERED: MIDAZOLAM 2 MG/2 ML VIAL IVP ONE (09:34)
[2017-06-18] MEDS ORDERED: LIDOCAINE-MPF 2% 5 ML VIAL IM ONE (09:34)
[2017-06-18] MEDS ORDERED: PROPOFOL 200 MG/20 ML VIAL IVP ONE (09:34)
[2017-06-18 09:53] VITALS: BP 127/66
--- NOTE | 2017-06-18 10:23 | OPERATIVE REPORT ---
DATE OF SURGERY: 06/18/2017 00:00:00 PREOPERATIVE DIAGNOSIS: Visually significant cataract, left eye. This was his first cataract surgery. POSTOPERATIVE DIAGNOSIS: Visually significant cataract, left eye. This was his first cataract surgery . NAME OF PROCEDURE: Phacoemulsification with posterior chamber intraocular lens implant, left eye. SURGEON: Tip Sequeira MD ANESTHESIA: Monitored anesthesia care. COMPLICATIONS: None. OPERATIVE INDICATIONS: This is a 77-year-old man with progressive vision loss in the left eye due to 2+ nuclear sclerotic and 2 to 3+ cortical cataract. Best corrected visual acuity was 20/30 with glare to 20/70 in the left eye. Indications for surgery were an overall decrease in vision. He was consent ed at length concerning the risks and benefits of cataract surgery after which he expressed a desire to proceed with surgery. OPERATIVE PROCEDURE: The patient was taken into OR #2 and placed under monitored anesthesia care. A s urgical time-out was conducted confirming correct patient, correct procedure and correct surgical sit e. He was given topical anesthesia and then prepped and draped in the usual sterile fashion. The eye was entered at the 6- and 3 o'clock positions. Intracameral Shugarcaine was injected into the anterio r chamber followed by Viscoat. A continuous tear curvilinear capsulorrhexis was performed. The nucleu s was hydrodissected and phacoemulsified. The cortex was evacuated using automated infusion and aspir ation. Provisc was injected into the capsular bag and a 23.0 diopter intraocular lens was inserted in to the bag. Approximately 0.7 mL of a mixture of triamcinolone, moxifloxacin, and vancomycin was inje cted subconjunctivally in the superior quadrant for infection and inflammation prophylaxis. I/A was u sed to evacuate the viscoelastic materials. The eye was inflated to physiologic pressure using balanc ed salt solution and found to be watertight. The patient was taken from the operating room in good co ndition and given postoperative instructions. JOB #: [id number] EXT JOB #:[id number]
== END 2017-06-18 08:23 | disposition home or self-care (01) ==
LOC: SDS 08:22
PROVIDERS: ATTEND Ophthalmology
PROC: 08RK3JZ Replacement of Left Lens with Synthetic Substitute, Percutaneous Approach (ICD-10-PCS; principal; 2017-06-18 09:30)
DX: H25.812 Combined forms of age-related cataract, left eye (principal); I10 Essential (primary) hypertension; N40.0 Benign prostatic hyperplasia without lower urinary tract symptoms; E78.5 Hyperlipidemia, unspecified; Z87.891 Personal history of nicotine dependence; Z79.82 Long term (current) use of aspirin
CPT/HCPCS: 66984; A9270; J3490; V2632

== ENCOUNTER 2017-12-17 08:00 | Outpatient (CLI) | payer MEDICARE, BC ==
[2017-12-17 12:54] LABS: BASOPHILS # (AUTO) 0.1 10^3/uL (0.0-0.1); BASOPHILS % (AUTO) 1.3 %; EOSINOPHILS # (AUTO) 0.2 10^3/uL (0.0-0.7); EOSINOPHILS % (AUTO) 3.8 %; HGB - HEMOGLOBIN 15.8 g/dL (14.0-18.0); LYMPHOCYTES # (AUTO) 1.5 10^3/uL (1.5-3.5); LYMPHOCYTES % (AUTO) 23.1 %; MEAN CORPUSCULAR HEMOGLOBIN 31.4 pg (27.0-31.0); MEAN CORPUSCULAR VOLUME 92.3 fL (80.0-94.0); MEAN PLATELET VOLUME 8.3 fL (7.4-11.4); MONOCYTES # (AUTO) 0.6 10^3/uL (0.0-1.0); MONOCYTES % (AUTO) 9.3 %; NEUTROPHILS % (AUTO) 62.5 %; PLT - PLATELET COUNT 256 10^3/uL (130-450); RED BLOOD COUNT 5.03 10^6/uL (4.70-6.10); RED CELL DISTRIBUTION WIDTH 12.7 % (12.0-15.0); WHITE BLOOD COUNT 6.4 x10^3/uL (4.8-10.8)
[2017-12-17 14:50] LABS: ALBUMIN/GLOBULIN RATIO 1.4 (1.0-2.2); ALKALINE PHOSPHATASE 48 IU/L (42-121); ALT ALANINE AMINOTRANSFERASE 22 IU/L (10-60); AST ASPARTATE AMINOTRANSFERASE 24 IU/L (10-42); BILIRUBIN,TOTAL 0.6 mg/dL (0.2-1.0); BUN - BLOOD UREA NITROGEN 12 mg/dL (6-20); CARBON DIOXIDE - CO2 29 mmol/L (21-32); CHLORIDE 96 mmol/L (101-111); CHOL/HDL RATIO 2.2 (<5.0); CHOLESTEROL 179 mg/dL; CREATININE 0.9 mg/dL (0.6-1.2); GFR - MDRD 82 (>89); GLUCOSE 97 mg/dL (70-100); HDL CHOLESTEROL 81 mg/dL; LDL CHOLESTEROL,CALCULATED 76 mg/dL; LDL/HDL RATIO 0.9 (<3.6); SODIUM 134 mmol/L (135-145); TOTAL PROTEIN 6.9 g/dL (6.7-8.2); VLDL CHOLESTEROL 22 mg/dL
== END 2017-12-17 08:01 | disposition home or self-care (01) ==
LOC: LAB.WCP 08:00
PROVIDERS: ATTEND Family Medicine
DX: I10 Essential (primary) hypertension (principal); E78.5 Hyperlipidemia, unspecified
CPT/HCPCS: 36415; 80053; 80061; 83721; 85025

== ENCOUNTER 2018-06-18 07:38 | Outpatient (CLI) | payer MEDICARE, BC ==
[2018-06-18 12:37] LABS: BASOPHILS # (AUTO) 0.1 10^3/uL (0.0-0.1); BASOPHILS % (AUTO) 1.2 %; EOSINOPHILS # (AUTO) 0.4 10^3/uL (0.0-0.7); EOSINOPHILS % (AUTO) 6.1 %; HGB - HEMOGLOBIN 15.7 g/dL (14.0-18.0); LYMPHOCYTES # (AUTO) 1.4 10^3/uL (1.5-3.5); LYMPHOCYTES % (AUTO) 23.2 %; MEAN CORPUSCULAR HGB CONC 34.6 g/dL (32.0-36.0); MEAN CORPUSCULAR VOLUME 95.3 fL (80.0-94.0); MEAN PLATELET VOLUME 7.9 fL (7.4-11.4); MONOCYTES # (AUTO) 0.6 10^3/uL (0.0-1.0); MONOCYTES % (AUTO) 10.4 %; NEUTROPHILS # (AUTO) 3.6 10^3/uL (1.5-6.6); NEUTROPHILS % (AUTO) 59.1 %; PLT - PLATELET COUNT 248 10^3/uL (130-450); RED BLOOD COUNT 4.76 10^6/uL (4.70-6.10); RED CELL DISTRIBUTION WIDTH 12.9 % (12.0-15.0); WHITE BLOOD COUNT 6.2 x10^3/uL (4.8-10.8)
[2018-06-18 13:27] LABS: ALBUMIN 3.8 g/dL (3.2-5.5); ALBUMIN/GLOBULIN RATIO 1.3 (1.0-2.2); ALKALINE PHOSPHATASE 56 IU/L (42-121); ALT ALANINE AMINOTRANSFERASE 25 IU/L (10-60); AST ASPARTATE AMINOTRANSFERASE 24 IU/L (10-42); BILIRUBIN,TOTAL 0.6 mg/dL (0.2-1.0); BUN - BLOOD UREA NITROGEN 10 mg/dL (6-20); CALCIUM 8.9 mg/dL (8.5-10.3); CARBON DIOXIDE - CO2 29 mmol/L (21-32); CHLORIDE 98 mmol/L (101-111); CHOL/HDL RATIO 2.2 (<5.0); CHOLESTEROL 165 mg/dL; CREATININE 0.9 mg/dL (0.6-1.2); GFR - MDRD 82 (>89); GLUCOSE 91 mg/dL (70-100); HDL CHOLESTEROL 74 mg/dL; LDL CHOLESTEROL,CALCULATED 72 mg/dL; SODIUM 135 mmol/L (135-145); TOTAL PROTEIN 6.7 g/dL (6.7-8.2); VLDL CHOLESTEROL 19 mg/dL
== END 2018-06-18 07:39 | disposition home or self-care (01) ==
LOC: LAB.WCP 07:38
PROVIDERS: ATTEND Family Medicine
DX: I10 Essential (primary) hypertension (principal); R97.20 Elevated prostate specific antigen [PSA]; E78.5 Hyperlipidemia, unspecified
CPT/HCPCS: 36415; 80053; 80061; 83721; 84153; 85025

== ENCOUNTER 2018-12-16 21:06 | Outpatient (CLI) | payer MEDICARE, BC | END 2018-12-16 21:07 | disposition critical access hospital (66) | LOC: EMS 21:06 | PROVIDERS: ATTEND Surgery | DX: R55 Syncope and collapse (principal) | CPT/HCPCS: A0425; A0427 ==

== ENCOUNTER 2018-12-16 21:21 | Emergency (ER) | payer MEDICARE, BC ==
--- NOTE | 2018-12-16 21:39 | ED Physician Documentation ---
PD HPI SYNCOPE - Stated complaint Stated Complaint: SYNCOPE, HIT HEAD, LEFT EYE TRAUMA - Chief complaint Chief Complaint: Neuro - History obtained from History obtained from: Patient - History of Present Illness Witnessed: Witnessed Duration: Minutes Preceding symptoms: Nausea / vomiting Associated symptoms: Diaphoresis, Nausea / vomiting. No: Seizure Contributing factors: Just stood up Injury occurred: Fell, Head injury Pain level now: 1 Treatment RADIOLOGY PHYSICIAN: Other (zofran) Recently seen: Not recently seen - Additional information Additional information: BIBA for syncope. Patient had just stood up from sitting position, felt nauseas and had witnessed syncopal event. Family says patient had 2-3 minutes of LOC, has gradually but completely returned to baseline mental status. Was diaphoretic on EMS arrival and had continued nausea which improved en route with IV zofran. Blood sugar was 129 per medics. patient struck face on floor, c/o left facial pain, predominantly left periorbital Review of Systems Constitutional: reports: Sweats. denies: Fever, Chills, Myalgias, Fatigue Eyes: denies: Loss of vision, Decreased vision Cardiac: reports: Reviewed and negative Respiratory: reports: Reviewed and negative GI: reports: Nausea, Vomiting. denies: Abdominal Pain : reports: Incontinent. denies: Dysuria, Frequency Musculoskeletal: reports: Reviewed and negative Neurologic: reports: Syncope, Head injury, LOC. denies: Generalized weakness, Focal weakness, Numbness, Seizure, Confused, Altered mental status, Headache PD PAST MEDICAL HISTORY - Past Medical History Cardiovascular: Hypertension, High cholesterol Respiratory: None Endocrine/Autoimmune: None GI: Colon polyps : Benign prostate hypertrophy HEENT: None Psych: None Musculoskeletal: None Derm: None - Past Surgical History Past Surgical History: Yes General: Appendectomy, Colonoscopy, Other Ortho: Other - Present Medications Home Medications: Ambulatory Orders Medication Instructions Recorded Confirmed Aspirin [Aspir 81] 81 mg PO QPM 12/13/13 12/16/18 Finasteride 5 mg PO DAILY 12/13/13 12/16/18 Losartan [Cozaar] 100 mg PO QPM 04/23/17 12/16/18 Simvastatin 10 mg PO QPM 04/23/17 12/16/18 hydroCHLOROthiazide [Hydrodiuril] 25 mg PO DAILY 04/23/17 12/16/18 amLODIPine [Norvasc] 10 mg PO DAILY 06/18/17 12/16/18 - Allergies Allergies/Adverse Reactions: Allergies Allergy/AdvReac Type Severity Reaction Status Date / Time No Known Drug Allergies Allergy Verified 12/16/18 21:49 - Social History Does the pt smoke?: No Smoking Status: Never smoker Does the pt drink ETOH?: Yes Does the pt have substance abuse?: No - Immunizations Immunizations are current?: Yes - POLST Patient has POLST: No PD ED PE NORMAL - Vitals Vital signs reviewed: Yes - General General: Alert and oriented X 3, No acute distress, Well developed/nourished - HEENT HEENT: PERRL, EOMI, Moist mucous membranes - Neck Neck: Supple, no meningeal sign, No bony TTP - Cardiac Cardiac: RRR, No murmur, No gallop, No rub - Respiratory Respiratory: No respiratory distress, Clear bilaterally - Abdomen Abdomen: Soft, Non tender, Non distended - Back Back: No spinal TTP - Derm Derm: Normal color, Warm and dry - Extremities Extremities: No edema - Neuro Neuro: Alert and oriented X 3, pastry mixer 2-12 intact, No motor deficit, No sensory deficit, Normal speech Eye Opening: Spontaneous Motor: Obeys Commands Verbal: Oriented GCS Score: 15 PD ED PE EXPANDED - HEENT HEENT Visual: 1 - abrasion 2 - bruising, tenderness Results - Vitals Vitals: Vital Signs - 24 hr 12/16/18 12/16/18 12/16/18 21:23 21:47 22:13 Temperature 36.5 C Heart Rate 64 65 76 Respiratory 18 13 13 Rate Blood Pressure 126/75 128/67 139/78 H O2 Saturation 96 94 94 12/16/18 12/16/18 12/16/18 22:59 23:30 23:56 Temperature Heart Rate 80 80 90 Respiratory 17 24 17 Rate Blood Pressure 128/73 141/76 H 135/79 H O2 Saturation 98 94 97 12/17/18 00:14 Temperature Heart Rate 84 Respiratory 18 Rate Blood Pressure 149/79 H O2 Saturation 95 Oxygen O2 Source Room air - EKG (time done) No standard instances Rate: Rate (enter#) (65) Rhythm: NSR [place]: Normal Intervals: Prolonged SD, Wide QRS (NSIVCD) Ischemia: Normal ST segments, Q waves (III, aVF) Compare to prior EKG: Unchanged from prior EKG (04/23/17) - Labs Labs: Laboratory Tests 12/16/18 12/16/18 12/16/18 21:41 21:41 21:41 WBC 6.0 RBC 4.53 L Hgb 14.9 Hct 45.3 MCV 100.0 H MCH 32.9 H MCHC 32.9 RDW 12.4 Plt Count 234 MPV 7.6 Neut # (Auto) 4.2 Lymph # (Auto) 1.0 L [place] # (Auto) 0.3 Eos # (Auto) 0.2 Baso # (Auto) 0.3 H Absolute Nucleated RBC 0.00 Nucleated RBC % 0.1 Sodium 132 L Potassium 3.3 L Chloride 96 L Carbon Dioxide 24 Anion Gap 12.0 BUN 14 Creatinine 0.9 Estimated GFR (MDRD) 82 L Glucose 158 H Calcium 8.5 Total Bilirubin 0.7 AST 23 ALT 28 Alkaline Phosphatase 57 Troponin I < 0.04 Total Protein 6.3 L Albumin 3.5 Globulin 2.8 Albumin/Globulin Ratio 1.3 Lipase 29 Ethyl Alcohol 12/16/18 21:41 WBC RBC Hgb Hct MCV MCH MCHC RDW Plt Count MPV Neut # (Auto) Lymph # (Auto) [place] # (Auto) Eos # (Auto) Baso # (Auto) Absolute Nucleated RBC Nucleated RBC % Sodium Potassium Chloride Carbon Dioxide Anion Gap BUN Creatinine Estimated GFR (MDRD) Glucose Calcium Total Bilirubin AST ALT Alkaline Phosphatase Troponin I Total Protein Albumin Globulin Albumin/Globulin Ratio Lipase Ethyl Alcohol 12.1 - Rads (name of study) CT head Radiology: Prelim report reviewed, See rad report CT facial bones Radiology: Prelim report reviewed, See rad report chest xray Radiology: Prelim report reviewed, See rad report PD MEDICAL DECISION MAKING - ED course Complexity details: reviewed results, re-evaluated patient, considered differential, d/w patient, d/w family Departure - Departure Disposition: 01 Home, Self Care Clinical Impression: Syncope Qualifiers: Syncope type: unspecified Qualified Code(s): R55 - Syncope and collapse Facial contusion Qualifiers: Encounter type: initial encounter Qualified Code(s): S00.83XA - Contusion of other part of head, initial encounter Condition: Good Instructions: ED Contusion Face, ED Fainting Unkn Cause Follow-Up: Isael King DO [Primary Care Provider] - (Call in the morning to arrange for next available appointment. Even if you are feeling well, your doctor might order further testing to evaluate possible causes of these episodes) Discharge Date/Time: 12/17/18 00:14
[2018-12-16 21:47] LABS: BASOPHILS # (AUTO) 0.3 10^3/uL (0.0-0.1); BASOPHILS % (AUTO) 5.4 %; EOSINOPHILS # (AUTO) 0.2 10^3/uL (0.0-0.7); EOSINOPHILS % (AUTO) 3.5 %; HGB - HEMOGLOBIN 14.9 g/dL (14.0-18.0); LYMPHOCYTES % (AUTO) 16.6 %; MEAN CORPUSCULAR HEMOGLOBIN 32.9 pg (27.0-31.0); MEAN CORPUSCULAR HGB CONC 32.9 g/dL (32.0-36.0); MEAN PLATELET VOLUME 7.6 fL (7.4-11.4); MONOCYTES # (AUTO) 0.3 10^3/uL (0.0-1.0); MONOCYTES % (AUTO) 4.8 %; NEUTROPHILS # (AUTO) 4.2 10^3/uL (1.5-6.6); NEUTROPHILS % (AUTO) 69.7 %; PLT - PLATELET COUNT 234 10^3/uL (130-450); RED BLOOD COUNT 4.53 10^6/uL (4.70-6.10); RED CELL DISTRIBUTION WIDTH 12.4 % (12.0-15.0)
[2018-12-16 22:00] LABS: ALBUMIN 3.5 g/dL (3.2-5.5); ALBUMIN/GLOBULIN RATIO 1.3 (1.0-2.2); BILIRUBIN,TOTAL 0.7 mg/dL (0.2-1.0); CALCIUM 8.5 mg/dL (8.5-10.3); CREATININE 0.9 mg/dL (0.6-1.2); TOTAL PROTEIN 6.3 g/dL (6.7-8.2)
--- NOTE | 2018-12-16 22:30 | XRAY Report ---
Reason: syncope Procedure Date: 12/16/2018 Accession Number: [id number] / [id number] Procedure: XR - Chest 2 View X-Ray CPT Code: 14586 FULL RESULT: EXAM: CHEST RADIOGRAPHY EXAM DATE: 12/16/2018 09:46 PM. CLINICAL HISTORY: Syncope. COMPARISON: CHEST 1 VIEW 04/23/2017 1:59 PM. TECHNIQUE: 2 views. FINDINGS: Lungs/Pleura: No focal opacities evident. No pleural effusion. No pneumothorax. Normal volumes. Mediastinum: Heart and mediastinal contours are unremarkable. Other: None. IMPRESSION: 1 . No acute infiltrates. RADIA
--- NOTE | 2018-12-16 22:30 | CT Report ---
Reason: syncope, head injury Procedure Date: 12/16/2018 Accession Number: [id number] / [id number] Procedure: CT - Head W/O CPT Code: FULL RESULT: EXAM: CT HEAD EXAM DATE: 12/16/2018 10:13 PM. CLINICAL HISTORY: Syncope, head injury. COMPARISON: Brain MRI 08/01/2011. TECHNIQUE: Multiaxial CT images were obtained from the foramen magnum to the vertex. Reformats: Sagittal and coronal. IV contrast: None. In accordance with CT protocol optimization, one or more of the following dose reduction techniques were utilized for this exam: automated exposure control, adjustment of mA and/or KV based on patient size, or use of iterative reconstructive technique. FINDINGS: Parenchyma: No intraparenchymal hemorrhage. No evidence of mass, midline shift, or CT findings of acute infarction. There is an area of left cerebellar encephalomalacia consistent with remote infarct. Extraaxial Spaces: No subdural or epidural collections identified. Ventricles: Mild enlargement of lateral ventricles. Diffuse prominence of sulci. No mass-effect or no midline shift. Sinuses and Orbits: Imaged paranasal sinuses, orbits, and mastoids show no significant abnormality. Bones: No evidence of fracture or calvarial defect. Other: None. IMPRESSION: 1. No acute intrarenal process. 2. Remote left cerebellar infarct. RADIA
--- NOTE | 2018-12-16 22:37 | CT Report ---
Reason: syncope, left facial injury Procedure Date: 12/16/2018 Accession Number: [id number] / [id number] Procedure: CT - Facial Bones W/O CPT Code: FULL RESULT: EXAM: CT MAXILLOFACIAL WITHOUT CONTRAST EXAM DATE: 12/16/2018 09:50 PM. CLINICAL HISTORY: Syncope, left facial injury. COMPARISONS: None. TECHNIQUE: Thin-section axial images were acquired of the face without contrast. Post-processing: Coronal and sagittal reformats. Other: None. In accordance with CT protocol optimization, one or more of the following dose reduction techniques were utilized for this exam: automated exposure control, adjustment of mA and/or KV based on patient size, or use of iterative reconstructive technique. FINDINGS: Soft Tissue: There are left periorbital/left cheek contusions. Orbits: Symmetric and unremarkable. Bones: No evidence of fracture. Right upper first molar. Focal lucency. Temporomandibular Joints: The temporomandibular joints are symmetric and normally located. Sinuses: Very mild bilateral macular sinus mucosal thickening. No sinus fluid levels. Other: None. IMPRESSION: No evidence of maxillofacial fracture. RADIA
[2018-12-16] MEDS ORDERED: SODIUM CHLORIDE 0.9% 500 ML IV ONE (22:45)
[2018-12-17 00:16] VITALS: BP 149/79
== END 2018-12-17 00:14 | disposition home or self-care (01) ==
LOC: EDUNIT# → ED 21:21
DX: R55 Syncope and collapse (principal); S00.12XA Contusion of left eyelid and periocular area, initial encounter; S00.83XA Contusion of other part of head, initial encounter; W18.30XA Fall on same level, unspecified, initial encounter; I44.0 Atrioventricular block, first degree; I10 Essential (primary) hypertension; E78.00 Pure hypercholesterolemia, unspecified; Z79.82 Long term (current) use of aspirin
CPT/HCPCS: 36415; 70450; 70486; 71046; 80053; 80320; 83690; 84484; 85025; 93005; 96360; 99284; 99285

== ENCOUNTER 2018-12-22 08:08 | Outpatient (CLI) | payer MEDICARE, BC ==
[2018-12-22 12:54] LABS: BASOPHILS % (AUTO) 0.9 %; EOSINOPHILS # (AUTO) 0.2 10^3/uL (0.0-0.7); EOSINOPHILS % (AUTO) 4.2 %; HGB - HEMOGLOBIN 15.2 g/dL (14.0-18.0); LYMPHOCYTES # (AUTO) 1.1 10^3/uL (1.5-3.5); LYMPHOCYTES % (AUTO) 21.5 %; MEAN CORPUSCULAR HGB CONC 35.1 g/dL (32.0-36.0); MEAN CORPUSCULAR VOLUME 93.9 fL (80.0-94.0); MEAN PLATELET VOLUME 8.4 fL (7.4-11.4); MONOCYTES # (AUTO) 0.6 10^3/uL (0.0-1.0); MONOCYTES % (AUTO) 11.2 %; NEUTROPHILS # (AUTO) 3.3 10^3/uL (1.5-6.6); NEUTROPHILS % (AUTO) 62.2 %; PLT - PLATELET COUNT 249 10^3/uL (130-450); RED CELL DISTRIBUTION WIDTH 12.4 % (12.0-15.0); WHITE BLOOD COUNT 5.3 x10^3/uL (4.8-10.8)
[2018-12-22 13:30] LABS: PSA FREE 0.33 ng/mL (0.16-2.81)
[2018-12-22 13:31] LABS: PSA TOTAL 4.84 ng/mL (0.000-2.000)
[2018-12-22 13:41] LABS: ALBUMIN 3.8 g/dL (3.2-5.5); ALBUMIN/GLOBULIN RATIO 1.4 (1.0-2.2); ALKALINE PHOSPHATASE 64 IU/L (42-121); ALT ALANINE AMINOTRANSFERASE 30 IU/L (10-60); AST ASPARTATE AMINOTRANSFERASE 25 IU/L (10-42); BILIRUBIN,TOTAL 0.7 mg/dL (0.2-1.0); BUN - BLOOD UREA NITROGEN 11 mg/dL (6-20); CALCIUM 8.9 mg/dL (8.5-10.3); CARBON DIOXIDE - CO2 29 mmol/L (21-32); CHLORIDE 95 mmol/L (101-111); CHOL/HDL RATIO 2.1 (<5.0); CHOLESTEROL 162 mg/dL; CREATININE 0.6 mg/dL (0.6-1.2); GFR - MDRD 130 (>89); GLUCOSE 108 mg/dL (70-100); HDL CHOLESTEROL 78 mg/dL; LDL CHOLESTEROL,CALCULATED 67 mg/dL; LDL/HDL RATIO 0.9 (<3.6); SODIUM 135 mmol/L (135-145); TOTAL PROTEIN 6.6 g/dL (6.7-8.2); VLDL CHOLESTEROL 17 mg/dL
== END 2018-12-22 08:09 | disposition home or self-care (01) ==
LOC: LAB.WCP 08:08
PROVIDERS: ATTEND Family Medicine
DX: E78.5 Hyperlipidemia, unspecified (principal); I10 Essential (primary) hypertension; R97.20 Elevated prostate specific antigen [PSA]
CPT/HCPCS: 36415; 80053; 80061; 83721; 84153; 84154; 85025

== ENCOUNTER 2019-06-27 08:00 | Outpatient (CLI) | payer MEDICARE, BC ==
[2019-06-27 12:32] LABS: ALBUMIN 3.7 g/dL (3.2-5.5); ALBUMIN/GLOBULIN RATIO 1.2 (1.0-2.2); ALKALINE PHOSPHATASE 61 IU/L (42-121); ALT ALANINE AMINOTRANSFERASE 27 IU/L (10-60); AST ASPARTATE AMINOTRANSFERASE 22 IU/L (10-42); BILIRUBIN,TOTAL 0.7 mg/dL (0.2-1.0); BUN - BLOOD UREA NITROGEN 14 mg/dL (6-20); CARBON DIOXIDE - CO2 28 mmol/L (21-32); CHLORIDE 101 mmol/L (101-111); CHOL/HDL RATIO 2.3 (<5.0); CHOLESTEROL 167 mg/dL; CREATININE 0.9 mg/dL (0.6-1.2); GFR - MDRD 81 (>89); GLUCOSE 101 mg/dL (70-100); HDL CHOLESTEROL 74 mg/dL; LDL CHOLESTEROL,CALCULATED 71 mg/dL; SODIUM 138 mmol/L (135-145); TOTAL PROTEIN 6.8 g/dL (6.7-8.2); VLDL CHOLESTEROL 22 mg/dL
[2019-06-27 12:34] LABS: PSA TOTAL 5.13 ng/mL (0.000-2.000)
[2019-06-27 12:44] LABS: BASOPHILS # (AUTO) 0.1 10^3/uL (0.0-0.1); BASOPHILS % (AUTO) 0.9 %; EOSINOPHILS # (AUTO) 0.3 10^3/uL (0.0-0.7); EOSINOPHILS % (AUTO) 5.8 %; LYMPHOCYTES # (AUTO) 1.3 10^3/uL (1.5-3.5); LYMPHOCYTES % (AUTO) 24.1 %; MEAN CORPUSCULAR HEMOGLOBIN 32.7 pg (27.0-31.0); MEAN CORPUSCULAR HGB CONC 33.8 g/dL (32.0-36.0); MEAN CORPUSCULAR VOLUME 96.9 fL (80.0-94.0); MEAN PLATELET VOLUME 10.1 fL (7.4-11.4); MONOCYTES # (AUTO) 0.6 10^3/uL (0.0-1.0); MONOCYTES % (AUTO) 10.9 %; NEUTROPHILS # (AUTO) 3.2 10^3/uL (1.5-6.6); NEUTROPHILS % (AUTO) 57.9 %; PLT - PLATELET COUNT 238 10^3/uL (130-450); RED BLOOD COUNT 4.89 10^6/uL (4.70-6.10); RED CELL DISTRIBUTION WIDTH 11.9 % (12.0-15.0); WHITE BLOOD COUNT 5.5 x10^3/uL (4.8-10.8)
[2019-06-27 12:59] LABS: PSA FREE 0.25 ng/mL (0.16-2.81)
== END 2019-06-27 23:59 | disposition home or self-care (01) ==
LOC: LAB.WCP 08:00
PROVIDERS: ATTEND Family Medicine
DX: I10 Essential (primary) hypertension (principal); R97.20 Elevated prostate specific antigen [PSA]
CPT/HCPCS: 36415; 80053; 80061; 83721; 84153; 84154; 85025

== ENCOUNTER 2020-01-02 08:08 | Outpatient (CLI) | payer MEDICARE, BC ==
[2020-01-02 12:22] LABS: BASOPHILS % (AUTO) 0.8 %; EOSINOPHILS # (AUTO) 0.2 10^3/uL (0.0-0.7); EOSINOPHILS % (AUTO) 4.5 %; HGB - HEMOGLOBIN 14.6 g/dL (14.0-18.0); LYMPHOCYTES % (AUTO) 18.9 %; MEAN CORPUSCULAR HEMOGLOBIN 31.4 pg (27.0-31.0); MEAN CORPUSCULAR VOLUME 95.3 fL (80.0-94.0); MEAN PLATELET VOLUME 9.9 fL (7.4-11.4); MONOCYTES # (AUTO) 0.6 10^3/uL (0.0-1.0); MONOCYTES % (AUTO) 10.4 %; NEUTROPHILS # (AUTO) 3.4 10^3/uL (1.5-6.6); NEUTROPHILS % (AUTO) 64.6 %; PLT - PLATELET COUNT 244 10^3/uL (130-450); RED BLOOD COUNT 4.65 10^6/uL (4.70-6.10); WHITE BLOOD COUNT 5.3 x10^3/uL (4.8-10.8)
[2020-01-02 13:41] LABS: ALBUMIN 3.6 g/dL (3.2-5.5); ALBUMIN/GLOBULIN RATIO 1.3 (1.0-2.2); ALKALINE PHOSPHATASE 52 IU/L (42-121); ALT ALANINE AMINOTRANSFERASE 22 IU/L (10-60); AST ASPARTATE AMINOTRANSFERASE 20 IU/L (10-42); BILIRUBIN,TOTAL 0.6 mg/dL (0.2-1.0); BUN - BLOOD UREA NITROGEN 18 mg/dL (6-20); CALCIUM 8.6 mg/dL (8.5-10.3); CARBON DIOXIDE - CO2 27 mmol/L (21-32); CHLORIDE 103 mmol/L (101-111); CHOL/HDL RATIO 2.1 (<5.0); CHOLESTEROL 163 mg/dL; GFR - MDRD 72 (>89); GLUCOSE 106 mg/dL (70-100); HDL CHOLESTEROL 76 mg/dL; LDL CHOLESTEROL,CALCULATED 75 mg/dL; SODIUM 137 mmol/L (135-145); TOTAL PROTEIN 6.4 g/dL (6.7-8.2); VLDL CHOLESTEROL 12 mg/dL
== END 2020-01-02 23:59 | disposition home or self-care (01) ==
LOC: LAB.WCP 08:08
PROVIDERS: ATTEND Family Medicine
DX: I10 Essential (primary) hypertension (principal); R97.20 Elevated prostate specific antigen [PSA]
CPT/HCPCS: 36415; 80053; 80061; 83721; 84153; 85025

== ENCOUNTER 2020-01-16 11:51 | Outpatient (CLI) | payer MEDICARE, BC ==
--- NOTE | 2020-01-17 03:27 | CT Report ---
Reason: CHRONIC COUGH Procedure Date: 01/16/2020 Accession Number: [id number] / [id number] Procedure: CT - CHEST WO CPT Code: Final Report FULL RESULT: EXAM: CT CHEST EXAM DATE: 01/16/2020 12:13 PM. CLINICAL HISTORY: CHRONIC COUGH. COMPARISONS: None. TECHNIQUE: Routine helical CT imaging was performed through the chest. IV contrast: None. Reconstructions: Coronal and sagittal. In accordance with CT protocol optimization, one or more of the following dose reduction techniques were utilized for this exam: automated exposure control, adjustment of mA and/or KV based on patient size, or use of iterative reconstructive technique. FINDINGS: Lungs/Pleura: Mild to moderate centrilobular emphysema in the bilateral upper lobes, greater on right than left. Right lower lobe 10 mm nodule. Minimal central bronchial wall thickening and mild reticulation at the lung bases. No lobar consolidation or pulmonary edema. No pleural effusion or pneumothorax. Mediastinum: Atherosclerotic vascular disease including coronary artery disease. No thoracic aortic aneurysm. Normal cardiac size. No significant pericardial effusion. Subcentimeter mediastinal lymph nodes. Bones: No acute osseous abnormality. Bones are mildly osteopenic with degenerative changes. Visualized Abdomen: Hypodense lesion in posterior aspect of right hepatic lobe measuring 1.3 cm. No acute findings in the visualized upper abdomen. Other: None. IMPRESSION: 1. Right lower lobe 10 mm nodule. Consider PET/CT, tissue sampling, or short interval follow-up CT at 3 months (per Fleischner recommendations). 2. Upper lobe predominant centrilobular emphysema. 3. Mild bronchial wall thickening and reticulation at lung bases. RADIA
== END 2020-01-16 11:52 | disposition home or self-care (01) ==
LOC: DI 11:51
PROVIDERS: ATTEND Family Medicine
DX: R91.1 Solitary pulmonary nodule (principal); J43.2 Centrilobular emphysema
CPT/HCPCS: 71250

== ENCOUNTER 2020-06-07 13:28 | Outpatient (CLI) | payer MEDICARE, BC ==
[2020-06-07 18:42] LABS: BASOPHILS # (AUTO) 0.1 10^3/uL (0.0-0.1); BASOPHILS % (AUTO) 0.7 %; EOSINOPHILS # (AUTO) 0.1 10^3/uL (0.0-0.7); EOSINOPHILS % (AUTO) 1.9 %; HGB - HEMOGLOBIN 15.6 g/dL (14.0-18.0); LYMPHOCYTES # (AUTO) 0.9 10^3/uL (1.5-3.5); LYMPHOCYTES % (AUTO) 12.6 %; MEAN CORPUSCULAR HEMOGLOBIN 33.6 pg (27.0-31.0); MEAN CORPUSCULAR HGB CONC 34.1 g/dL (32.0-36.0); MEAN CORPUSCULAR VOLUME 98.5 fL (80.0-94.0); MEAN PLATELET VOLUME 10.3 fL (7.4-11.4); MONOCYTES # (AUTO) 0.6 10^3/uL (0.0-1.0); MONOCYTES % (AUTO) 8.5 %; NEUTROPHILS # (AUTO) 5.6 10^3/uL (1.5-6.6); NEUTROPHILS % (AUTO) 75.9 %; PLT - PLATELET COUNT 243 10^3/uL (130-450); RED BLOOD COUNT 4.64 10^6/uL (4.70-6.10); RED CELL DISTRIBUTION WIDTH 12.2 % (12.0-15.0); WHITE BLOOD COUNT 7.4 x10^3/uL (4.8-10.8)
[2020-06-07 19:07] LABS: HB2 TOTAL 16.5 g/dL; HEMOGLOBIN A1C 0.52 g/dL
[2020-06-07 19:18] LABS: ALBUMIN 3.9 g/dL (3.2-5.5); ALBUMIN/GLOBULIN RATIO 1.4 (1.0-2.2); ALKALINE PHOSPHATASE 66 IU/L (42-121); ALT ALANINE AMINOTRANSFERASE 28 IU/L (10-60); AST ASPARTATE AMINOTRANSFERASE 23 IU/L (10-42); BILIRUBIN,TOTAL 0.4 mg/dL (0.2-1.0); BUN - BLOOD UREA NITROGEN 20 mg/dL (6-20); CALCIUM 9.3 mg/dL (8.5-10.3); CARBON DIOXIDE - CO2 27 mmol/L (21-32); CHLORIDE 100 mmol/L (101-111); CHOL/HDL RATIO 2.4 (<5.0); CHOLESTEROL 197 mg/dL; GLUCOSE 103 mg/dL (70-100); HDL CHOLESTEROL 83 mg/dL; LDL CHOLESTEROL,CALCULATED 60 mg/dL; LDL/HDL RATIO 0.7 (<3.6); SODIUM 135 mmol/L (135-145); TOTAL PROTEIN 6.7 g/dL (6.7-8.2); VLDL CHOLESTEROL 54 mg/dL
== END 2020-06-07 23:59 | disposition home or self-care (01) ==
LOC: LAB.WCP 13:28
PROVIDERS: ATTEND Family Medicine
DX: I10 Essential (primary) hypertension (principal); R97.20 Elevated prostate specific antigen [PSA]; E78.5 Hyperlipidemia, unspecified; E66.9 Obesity, unspecified
CPT/HCPCS: 36415; 80053; 80061; 83036; 83721; 84153; 85025

== ENCOUNTER 2021-05-16 11:27 | Outpatient (CLI) | payer MEDICARE, BC ==
[2021-05-16 18:07] LABS: BASOPHILS # (AUTO) 0.1 10^3/uL (0.0-0.1); BASOPHILS % (AUTO) 0.7 %; EOSINOPHILS # (AUTO) 0.2 10^3/uL (0.0-0.7); EOSINOPHILS % (AUTO) 2.1 %; HCT - HEMATOCRIT 47.8 % (42.0-52.0); HGB - HEMOGLOBIN 16.2 g/dL (14.0-18.0); LYMPHOCYTES # (AUTO) 0.9 10^3/uL (1.5-3.5); LYMPHOCYTES % (AUTO) 12.6 %; MEAN CORPUSCULAR HEMOGLOBIN 33.1 pg (27.0-31.0); MEAN CORPUSCULAR HGB CONC 33.9 g/dL (32.0-36.0); MEAN CORPUSCULAR VOLUME 97.8 fL (80.0-94.0); MEAN PLATELET VOLUME 10.2 fL (7.4-11.4); MONOCYTES # (AUTO) 0.7 10^3/uL (0.0-1.0); MONOCYTES % (AUTO) 9.1 %; NEUTROPHILS # (AUTO) 5.4 10^3/uL (1.5-6.6); NEUTROPHILS % (AUTO) 75.1 %; PLT - PLATELET COUNT 241 10^3/uL (130-450); RED BLOOD COUNT 4.89 10^6/uL (4.70-6.10); RED CELL DISTRIBUTION WIDTH 12.3 % (12.0-15.0); WHITE BLOOD COUNT 7.2 x10^3/uL (4.8-10.8)
[2021-05-16 18:30] LABS: ALBUMIN 3.9 g/dL (3.2-5.5); ALBUMIN/GLOBULIN RATIO 1.3 (1.0-2.2); ALKALINE PHOSPHATASE 65 IU/L (42-121); ALT ALANINE AMINOTRANSFERASE 26 IU/L (10-60); AST ASPARTATE AMINOTRANSFERASE 23 IU/L (10-42); BILIRUBIN,TOTAL 0.8 mg/dL (0.2-1.0); BUN - BLOOD UREA NITROGEN 17 mg/dL (6-20); CARBON DIOXIDE - CO2 29 mmol/L (21-32); CHLORIDE 97 mmol/L (101-111); CHOL/HDL RATIO 2.3 (<5.0); CHOLESTEROL 186 mg/dL; CREATININE 1.2 mg/dL (0.6-1.2); GFR - MDRD 58 (>89); GLUCOSE 107 mg/dL (70-100); HDL CHOLESTEROL 80 mg/dL; LDL CHOLESTEROL,CALCULATED 67 mg/dL; LDL/HDL RATIO 0.8 (<3.6); POTASSIUM 4.2 mmol/L (3.5-5.0); SODIUM 136 mmol/L (135-145); TOTAL PROTEIN 6.8 g/dL (6.7-8.2); TRIGLYCERIDES 195 mg/dL; VLDL CHOLESTEROL 39 mg/dL
== END 2021-05-16 23:59 | disposition home or self-care (01) ==
LOC: LAB.WCP 11:27
PROVIDERS: ATTEND Family Medicine
DX: I10 Essential (primary) hypertension (principal); E78.5 Hyperlipidemia, unspecified; C61 Malignant neoplasm of prostate
CPT/HCPCS: 36415; 80053; 80061; 83721; 84153; 85025

== ENCOUNTER 2021-05-21 11:48 | Outpatient (CLI) | payer MEDICARE, BC ==
[2021-05-21 19:29] LABS: URIC ACID 4.4 mg/dL (2.6-7.2)
== END 2021-05-21 11:49 | disposition home or self-care (01) ==
LOC: LAB.N 11:48
PROVIDERS: ATTEND Family Medicine
DX: R22.40 Localized swelling, mass and lump, unspecified lower limb (principal)
CPT/HCPCS: 36415; 84550; 85651; 86140

== ENCOUNTER 2021-09-11 19:04 | Outpatient (CLI) | payer MEDICARE, BC | END 2021-09-11 19:05 | disposition EMS.NT | LOC: EMS 19:04 | DX: Z03.89 Encounter for observation for other suspected diseases and conditions ruled out (principal) ==

== ENCOUNTER 2021-09-12 10:04 | Emergency (ER) | payer MEDICARE, BC ==
--- NOTE | 2021-09-12 10:38 | ED Physician Documentation ---
PD HPI Fall - Stated complaint Stated Complaint: FALL/WEAKNESS - Chief complaint Chief Complaint: General - History obtained from History obtained from: Patient, Family - History of Present Illness Mechanism of injury: Unknown Fall distance: Standing position Where injury occurred: Home Timing - onset: Last night Injury(ies) location: Head, Face Quality of pain: Other (does not bother the patient) Associated symptoms: Amnesia, Paresthesias (to both arms similar to past several months). No: LOC, AMS, Neck pain Symptoms improve with: Rest Worsens with: Movement Contributing factors: No: Anticoagulated Similar symptoms before: Diagnosis (syncope) Recently seen: Not recently seen - Additional information Additional information: 81-year-old male with a history of indolent prostate cancer, hypertension and continuous alcohol consumption is on some hydrochlorothiazide. He reports a history of lightheadedness and dizziness that is frequent and present especially over the past year. Last night he went out to dinner with his daughter had some drinks. When home, the daughter states that she knew he was going to fall. He was walking all bent over when he went into the house. Shortly after she arrived home she got a call from her mother stating he had fall fallen. She went over to help him up. He had a abrasion to his forehead and nose and did not recall how he fell. He was helped up by medics and this morning he is brought to the emergency department by his daughter with the chief complaint of a fall, lightheaded and dizziness, and tingling to both of his arms. He reports he has had tingling to both of his arms for about 2 to 3 months. He denies headache or other symptoms. He does urinate a lot and drinks beer and vodka. Review of Systems Constitutional: denies: Fever Eyes: denies: Decreased vision Ears: denies: Ear pain Nose: denies: Congestion Throat: denies: Sore throat Cardiac: denies: Chest pain / pressure, Palpitations Respiratory: reports: Cough (chronic and unchanged). denies: Dyspnea GI: denies: Abdominal Pain, Nausea, Vomiting, Constipation, Diarrhea : reports: Frequency. denies: Dysuria Skin: denies: Rash Musculoskeletal: reports: Extremity swelling (none now but he crosses his legs to watch TV and will have swelling to the dependant left calf and not to the right calf draped over his lap.). denies: Neck pain, Back pain, Extremity pain Neurologic: reports: Numbness (to the arms bilaterally worse on the left), Head injury, LOC. denies: Difficulty speaking, Headache PD PAST MEDICAL HISTORY - Past Medical History Past Medical History: Yes Cardiovascular: Hypertension, High cholesterol Respiratory: None, Other Neuro: Tremors Endocrine/Autoimmune: None GI: Colon polyps : Benign prostate hypertrophy, Frequency HEENT: None Psych: None Musculoskeletal: None Derm: None Other Past Medical History: daughter states patient has dementia and also drinks 4 beers a day and 2 cocktails. States he drank extra beer yesterday. - Past Surgical History Past Surgical History: Yes General: Appendectomy, Colonoscopy, Other Ortho: Other - Present Medications Home Medications: Ambulatory Orders Medication Instructions Recorded Confirmed Aspirin [Aspir 81] 81 mg PO QPM 12/13/13 09/12/21 Finasteride 5 mg PO DAILY 12/13/13 09/12/21 Losartan [Cozaar] 100 mg PO QPM 04/23/17 09/12/21 Simvastatin 10 mg PO QPM 04/23/17 09/12/21 hydroCHLOROthiazide [Hydrodiuril] 25 mg PO DAILY 04/23/17 09/12/21 amLODIPine [Norvasc] 10 mg PO DAILY 06/18/17 09/12/21 - Allergies Allergies/Adverse Reactions: Allergies Allergy/AdvReac Type Severity Reaction Status Date / Time No Known Drug Allergies Allergy Verified 09/12/21 10:17 - Social History Does the pt smoke?: No Smoking Status: Never smoker Does the pt drink ETOH?: Yes ETOH Use: Beer, Liquor Does the pt have substance abuse?: No - Immunizations Immunizations are current?: Yes - POLST Patient has POLST: No PD ED PE NORMAL - Vitals Vital signs reviewed: Yes (hypertensive ) - General General: No acute distress, Well developed/nourished - HEENT HEENT: PERRL, EOMI, Other (abrasion to the right forehead is non-tender. abrasion to the nasal bridge is non-tender) - Neck Neck: Supple, no meningeal sign, No bony TTP - Cardiac Cardiac: RRR, No murmur - Respiratory Respiratory: No respiratory distress, Clear bilaterally - Abdomen Abdomen: Normal bowel sounds, Soft, Non tender, Non distended, No organomegaly - Back Back: No CVA TTP, No spinal TTP - Derm Derm: Normal color, Warm and dry, No rash - Extremities Extremities: No deformity, No edema - Neuro Neuro: Alert and oriented X 3, licensed architect 2-12 intact, No motor deficit, No sensory deficit, Normal speech Eye Opening: Spontaneous Motor: Obeys Commands Verbal: Oriented GCS Score: 15 - Psych Psych: Normal mood, Normal affect Results - Vitals Vitals: Vital Signs - 24 hr 09/12/21 09/12/21 09/12/21 10:12 10:26 12:47 Temperature 36.4 C L Heart Rate 91 94 82 Respiratory 16 20 17 Rate Blood Pressure 148/95 H 158/74 H 108/89 H O2 Saturation 96 96 96 Oxygen O2 Source Room air - EKG (time done) 1024 Rate: Rate (enter#) (85) Rhythm: NSR Intervals: Wide QRS (consider RBBB), Other (short VA interval) Compare to prior EKG: Changed from prior EKG (SPT 12-16-2018 the VA interval has decreased. voltage in the precordial leads has decreased.) Computer interpretation: Agree with computer - Labs Labs: Laboratory Tests 09/12/21 09/12/21 09/12/21 10:42 10:42 10:42 WBC 8.4 RBC 4.97 Hgb 16.4 Hct 46.6 MCV 93.8 MCH 33.0 H MCHC 35.2 RDW 11.8 L Plt Count 222 MPV 9.5 Neut # (Auto) 6.8 H Lymph # (Auto) 0.8 L [place] # (Auto) 0.7 Eos # (Auto) 0.1 Baso # (Auto) 0.1 Absolute Nucleated RBC 0.00 Nucleated RBC % 0.0 Sodium 137 Potassium 4.5 Chloride 100 L Carbon Dioxide 26 Anion Gap 11.0 BUN 13 Creatinine 0.8 Estimated GFR (MDRD) 93 Glucose 122 H Calcium 9.2 Total Bilirubin 0.6 AST 35 ALT 31 Alkaline Phosphatase 70 Troponin I High Sens 9.6 Total Protein 7.3 Albumin 4.0 Globulin 3.3 Albumin/Globulin Ratio 1.2 Lipase 32 Ethyl Alcohol 09/12/21 10:42 WBC RBC Hgb Hct MCV MCH MCHC RDW Plt Count MPV Neut # (Auto) Lymph # (Auto) [place] # (Auto) Eos # (Auto) Baso # (Auto) Absolute Nucleated RBC Nucleated RBC % Sodium Potassium Chloride Carbon Dioxide Anion Gap BUN Creatinine Estimated GFR (MDRD) Glucose Calcium Total Bilirubin AST ALT Alkaline Phosphatase Troponin I High Sens Total Protein Albumin Globulin Albumin/Globulin Ratio Lipase Ethyl Alcohol < 5.0 Procedures - IVC sono (time) 1100 Bedside IVC sono: IVC measures (cm) (0.71), Dehydration (est 2-3 liter deficit) PD MEDICAL DECISION MAKING - ED course Complexity details: reviewed old records, reviewed results, re-evaluated patient, considered differential, d/w patient, d/w family ED course: 81-year-old male who concerns significant alcohol regularly is also on hydrochlorothiazide.Patient had a fall while he was intoxicated last night and injured his forehead. Today in the emerge department he is found to be significantly dehydrated on interrogation the inferior vena cava and he is administered saline. We have encouraged him to discontinue the use of the hydrochlorothiazide. CT scan of the head and neck were without evidence of injury. The patient is complaining of numbness and tingling to his arms bilaterally that may be even worse today on the right side than usual. Difficult to tell from the history. He is administered dexamethasone with anticipation of improvement in his symptoms. I have indicated the patient should he have improvement he should seek MRI of the neck for epidural steroid injection. Departure - Departure Disposition: 01 Home, Self Care Clinical Impression: Dehydration determined by examination, Cervical radiculopathy Facial contusion Qualifiers: Encounter type: initial encounter Qualified Code(s): S00.83XA - Contusion of other part of head, initial encounter Condition: Stable Instructions: ED Dehydration, ED Contusion Face, ED Cervical Radiculopathy Follow-Up: Isael King DO [Primary Care Provider] - Comments: Dario, today we did find you were dehydrated when we looked at the large vein in your abdomen. The recommendation is to discontinue the use of hydrochlorothiazide. Reduce your alcohol consumption. In addition it does appear you have some cervical radiculopathy or pain and numbness referred to your arms from your neck. Today we gave you a dose of dexamethasone. This may be effective later on this evening at relieving some of your symptoms. If this happens follow-up with your primary care doctor to consider MRI of your neck for consideration of epidural steroid injections. Discharge Date/Time: 09/12/21 12:55
[2021-09-12 10:47] LABS: BASOPHILS # (AUTO) 0.1 10^3/uL (0.0-0.1); BASOPHILS % (AUTO) 0.7 %; EOSINOPHILS # (AUTO) 0.1 10^3/uL (0.0-0.7); EOSINOPHILS % (AUTO) 1.1 %; HCT - HEMATOCRIT 46.6 % (42.0-52.0); HGB - HEMOGLOBIN 16.4 g/dL (14.0-18.0); LYMPHOCYTES # (AUTO) 0.8 10^3/uL (1.5-3.5); LYMPHOCYTES % (AUTO) 9.3 %; MEAN CORPUSCULAR HGB CONC 35.2 g/dL (32.0-36.0); MEAN CORPUSCULAR VOLUME 93.8 fL (80.0-94.0); MEAN PLATELET VOLUME 9.5 fL (7.4-11.4); MONOCYTES # (AUTO) 0.7 10^3/uL (0.0-1.0); MONOCYTES % (AUTO) 8.2 %; NEUTROPHILS # (AUTO) 6.8 10^3/uL (1.5-6.6); NEUTROPHILS % (AUTO) 80.3 %; PLT - PLATELET COUNT 222 10^3/uL (130-450); RED BLOOD COUNT 4.97 10^6/uL (4.70-6.10); RED CELL DISTRIBUTION WIDTH 11.8 % (12.0-15.0); WHITE BLOOD COUNT 8.4 x10^3/uL (4.8-10.8)
--- NOTE | 2021-09-12 10:51 | XRAY Report ---
PROCEDURE: Chest 1 View X-Ray INDICATIONS: Chest pain TECHNIQUE: One view of the chest was acquired. COMPARISON: 12/16/2018. FINDINGS: Surgical changes and devices: There are surgical clips within the visualized left neck. Lungs and pleura: No pleural effusions or pneumothorax. There is mild elevation of the left main di aphragm. Linear opacities peripherally in the left lung base likely represent atelectasis. No definit e focal consolidation. There is a small nodular opacity peripherally in the right lung base likely re presenting confluence of vascular structures. Mediastinum: Mediastinal contours appear normal. Heart size is normal. Bones and chest wall: No suspicious bony lesions. Overlying soft tissues appear unremarkable. IMPRESSION: 1. Probable atelectasis in the left lung base. 2. No definite acute cardiopulmonary disease. 3. Small nodular opacity in the right lung base likely represents confluence of vascular structures. Consider follow-up evaluation with a PA and lateral study. Reviewed by: Ethan Vega MD on 09/12/2021 10:50 AM [facility] Approved by: Ethan Vega MD on 09/12/2021 10:50 AM PST Station ID: [id number]
[2021-09-12 11:02] LABS: ALBUMIN/GLOBULIN RATIO 1.2 (1.0-2.2); BILIRUBIN,TOTAL 0.6 mg/dL (0.2-1.0); CALCIUM 9.2 mg/dL (8.5-10.3); CREATININE 0.8 mg/dL (0.6-1.2); POTASSIUM 4.5 mmol/L (3.5-5.0); TOTAL PROTEIN 7.3 g/dL (6.7-8.2)
[2021-09-12] MEDS ORDERED: SODIUM CHLORIDE 0.9% 1,000 ML IV STA (11:03)
--- NOTE | 2021-09-12 11:36 | CT Report ---
PROCEDURE: HEAD WO INDICATIONS: polytrauma, head and neck TECHNIQUE: Noncontrast 4.5 mm thick angled axial sections acquired from the foramen magnum to the vertex. For r adiation dose reduction, the following was used: automated exposure control, adjustment of mA and/or kV according to patient size. COMPARISON: CT head 12/16/2018. FINDINGS: Image quality: Excellent. CSF spaces: There is moderate cerebral volume loss with prominence of the ventricles and sulci. Basa l cisterns are patent. No extra-axial fluid collections. Brain: No intracranial hemorrhage, mass, or mass effect. There is evidence of malacia redemonstrated within the left femoral hemisphere consistent with sequelae of a prior infarct. There are periventri cular and subcortical white matter hypodensities consistent with mild to moderate chronic small vesse l ischemic changes. Skull and face: Calvarium and visualized facial bones are intact, without suspicious lesions. Sinuses: Visualized sinuses and mastoids are clear. IMPRESSION: 1. No acute intracranial evaluate. 2. Moderate cerebral volume loss and mild to moderate chronic white matter small vessel ischemic mitchell ges. 3. 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 Reviewed by: Ethan Vega MD on 09/12/2021 11:35 AM PST Approved by: Ethan Vega MD on 09/12/2021 11:35 AM PST Station ID: [id number]
--- NOTE | 2021-09-12 11:45 | CT Report ---
PROCEDURE: CERVICAL SPINE WO INDICATIONS: polytrauma, head and neck TECHNIQUE: Noncontrast 3 mm thick sections acquired from the skull base to the T4 level. Sagittal and coronal r eformats were then constructed. For radiation dose reduction, the following was used: automated exp osure control, adjustment of mA and/or kV according to patient size. COMPARISON: None. FINDINGS: Image quality: Excellent. Bones: No fractures or subluxation. There is reversal of cervical lordosis. Mild to moderate multile tab degenerative disc disease demonstrated throughout the cervical spine. There is also multilevel fa cet joint arthropathy most prominent superiorly. Visualized superior ribs are intact. Soft tissues: Prevertebral soft tissues are normal in thickness. No paravertebral hematomas. No ap ical pneumothoraces. IMPRESSION: 1. No acute fracture or subluxation. Reviewed by: Ethan Vega MD on 09/12/2021 11:44 AM PST Approved by: Ethan Vega MD on 09/12/2021 11:44 AM PST Station ID: [id number]
[2021-09-12] MEDS ORDERED: DEXAMETHASONE 10 MG/ML VIAL IVP STA (12:11)
[2021-09-12 12:51] VITALS: BP 108/89
== END 2021-09-12 12:55 | disposition home or self-care (01) ==
LOC: ED 10:04
DX: E86.0 Dehydration (principal); M54.12 Radiculopathy, cervical region; S00.31XA Abrasion of nose, initial encounter; S00.81XA Abrasion of other part of head, initial encounter; W19.XXXA Unspecified fall, initial encounter; Z91.81 History of falling; I10 Essential (primary) hypertension; E78.00 Pure hypercholesterolemia, unspecified; N40.1 Benign prostatic hyperplasia with lower urinary tract symptoms; R35.0 Frequency of micturition; Z79.82 Long term (current) use of aspirin; Z79.899 Other long term (current) drug therapy; Z72.89 Other problems related to lifestyle
CPT/HCPCS: 36415; 70450; 71045; 72125; 80053; 83690; 84484; 85025; 93005; 96374; 99284; G0480; 80320

== ENCOUNTER 2021-12-18 07:50 | Outpatient (CLI) | payer MEDICARE, BC ==
[2021-12-18 12:28] LABS: BASOPHILS # (AUTO) 0.1 10^3/uL (0.0-0.1); BASOPHILS % (AUTO) 1.2 %; EOSINOPHILS # (AUTO) 0.2 10^3/uL (0.0-0.7); EOSINOPHILS % (AUTO) 3.8 %; HCT - HEMATOCRIT 47.3 % (42.0-52.0); HGB - HEMOGLOBIN 16.2 g/dL (14.0-18.0); LYMPHOCYTES # (AUTO) 1.5 10^3/uL (1.5-3.5); LYMPHOCYTES % (AUTO) 24.2 %; MEAN CORPUSCULAR HEMOGLOBIN 32.9 pg (27.0-31.0); MEAN CORPUSCULAR HGB CONC 34.2 g/dL (32.0-36.0); MEAN CORPUSCULAR VOLUME 95.9 fL (80.0-94.0); MEAN PLATELET VOLUME 10.1 fL (7.4-11.4); MONOCYTES # (AUTO) 0.6 10^3/uL (0.0-1.0); MONOCYTES % (AUTO) 9.6 %; NEUTROPHILS # (AUTO) 3.7 10^3/uL (1.5-6.6); NEUTROPHILS % (AUTO) 60.7 %; PLT - PLATELET COUNT 259 10^3/uL (130-450); RED BLOOD COUNT 4.93 10^6/uL (4.70-6.10); RED CELL DISTRIBUTION WIDTH 12.1 % (12.0-15.0)
[2021-12-18 13:04] LABS: THYROID STIMULATING HORMONE 2.99 uIU/mL (0.34-5.60)
[2021-12-18 13:27] LABS: ALBUMIN 3.8 g/dL (3.2-5.5); ALBUMIN/GLOBULIN RATIO 1.3 (1.0-2.2); ALKALINE PHOSPHATASE 62 IU/L (42-121); ALT ALANINE AMINOTRANSFERASE 24 IU/L (10-60); AST ASPARTATE AMINOTRANSFERASE 22 IU/L (10-42); BILIRUBIN,TOTAL 0.7 mg/dL (0.2-1.0); BUN - BLOOD UREA NITROGEN 16 mg/dL (6-20); CALCIUM 9.1 mg/dL (8.5-10.3); CARBON DIOXIDE - CO2 29 mmol/L (21-32); CHLORIDE 99 mmol/L (101-111); CHOL/HDL RATIO 2.5 (<5.0); CHOLESTEROL 203 mg/dL; CREATININE 0.9 mg/dL (0.6-1.2); GFR - MDRD 81 (>89); GLUCOSE 102 mg/dL (70-100); HDL CHOLESTEROL 82 mg/dL; LDL CHOLESTEROL,CALCULATED 106 mg/dL; LDL/HDL RATIO 1.3 (<3.6); POTASSIUM 4.2 mmol/L (3.5-5.0); SODIUM 135 mmol/L (135-145); TOTAL PROTEIN 6.8 g/dL (6.7-8.2); TRIGLYCERIDES 77 mg/dL; VLDL CHOLESTEROL 15 mg/dL
== END 2021-12-18 07:51 | disposition home or self-care (01) ==
LOC: LAB.N 07:50
PROVIDERS: ATTEND Family Medicine
DX: I10 Essential (primary) hypertension (principal); E78.5 Hyperlipidemia, unspecified; N40.1 Benign prostatic hyperplasia with lower urinary tract symptoms; N13.8 Other obstructive and reflux uropathy; Z79.899 Other long term (current) drug therapy
CPT/HCPCS: 36415; 80053; 80061; 83721; 84153; 84443; 85025

== ENCOUNTER 2022-08-07 07:40 | Outpatient (CLI) | payer MEDICARE, BC ==
[2022-08-07 12:05] LABS: BASOPHILS # (AUTO) 0.1 10^3/uL (0.0-0.1); EOSINOPHILS # (AUTO) 0.2 10^3/uL (0.0-0.7); EOSINOPHILS % (AUTO) 3.8 %; HCT - HEMATOCRIT 48.2 % (42.0-52.0); HGB - HEMOGLOBIN 16.7 g/dL (14.0-18.0); LYMPHOCYTES # (AUTO) 1.3 10^3/uL (1.5-3.5); LYMPHOCYTES % (AUTO) 21.2 %; MEAN CORPUSCULAR HEMOGLOBIN 32.9 pg (27.0-31.0); MEAN CORPUSCULAR HGB CONC 34.6 g/dL (32.0-36.0); MEAN CORPUSCULAR VOLUME 95.1 fL (80.0-94.0); MONOCYTES # (AUTO) 0.6 10^3/uL (0.0-1.0); MONOCYTES % (AUTO) 9.8 %; NEUTROPHILS # (AUTO) 3.9 10^3/uL (1.5-6.6); NEUTROPHILS % (AUTO) 63.9 %; PLT - PLATELET COUNT 235 10^3/uL (130-450); RED BLOOD COUNT 5.07 10^6/uL (4.70-6.10); RED CELL DISTRIBUTION WIDTH 12.1 % (12.0-15.0); WHITE BLOOD COUNT 6.1 x10^3/uL (4.8-10.8)
[2022-08-07 12:39] LABS: THYROID STIMULATING HORMONE 3.08 uIU/mL (0.34-5.60)
[2022-08-07 12:48] LABS: ALBUMIN 3.7 g/dL (3.2-5.5); ALBUMIN/GLOBULIN RATIO 1.2 (1.0-2.2); ALKALINE PHOSPHATASE 72 IU/L (42-121); ALT ALANINE AMINOTRANSFERASE 22 IU/L (10-60); AST ASPARTATE AMINOTRANSFERASE 21 IU/L (10-42); BILIRUBIN,TOTAL 0.8 mg/dL (0.2-1.0); BUN - BLOOD UREA NITROGEN 12 mg/dL (6-20); CALCIUM 9.1 mg/dL (8.5-10.3); CARBON DIOXIDE - CO2 28 mmol/L (21-32); CHLORIDE 98 mmol/L (101-111); CHOL/HDL RATIO 2.1 (<5.0); CHOLESTEROL 167 mg/dL; CREATININE 0.8 mg/dL (0.6-1.2); GFR - MDRD 93 (>89); GLUCOSE 112 mg/dL (70-100); HDL CHOLESTEROL 80 mg/dL; LDL CHOLESTEROL,CALCULATED 70 mg/dL; LDL/HDL RATIO 0.9 (<3.6); POTASSIUM 4.2 mmol/L (3.5-5.0); SODIUM 136 mmol/L (135-145); TOTAL PROTEIN 6.8 g/dL (6.7-8.2); TRIGLYCERIDES 86 mg/dL; VLDL CHOLESTEROL 17 mg/dL
== END 2022-08-07 07:41 | disposition home or self-care (01) ==
LOC: LAB.N 07:40
PROVIDERS: ATTEND Physician Assistant
DX: I10 Essential (primary) hypertension (principal); Z51.81 Encounter for therapeutic drug level monitoring; E78.5 Hyperlipidemia, unspecified; C61 Malignant neoplasm of prostate
CPT/HCPCS: 36415; 80053; 80061; 83721; 84153; 84443; 85025

== ENCOUNTER 2022-08-07 07:49 | Outpatient (CLI) | payer MEDICARE, BC ==
--- NOTE | 2022-08-07 12:30 | XRAY Report ---
PROCEDURE: Chest 2 View X-Ray INDICATIONS: PULMONARY NODULE TECHNIQUE: 2 view(s) of the chest. COMPARISON: None. FINDINGS: Surgical changes and devices: None Lungs and pleura: Persistent 7 mm nodular opacity in the right lung base is stable from prior exam. Remainder the lungs and pleural spaces are clear. There is elevation left hemidiaphragm. No pleural e ffusion or pneumothorax. Mediastinum: Mediastinal contours are normal. Heart size is normal. Atherosclerotic vascular calcif ication noted in the aortic arch Bones and chest wall: No suspicious bony abnormalities. Soft tissues appear unremarkable. IMPRESSION: Persistent 7 mm nodular density in the right lung base. Consider follow-up CT evaluation Reviewed by: Geovani Rodriguez MD on 08/07/2022 11:29 AM [facility] Approved by: Geovani Rodriguez MD on 08/07/2022 11:29 AM [facility] Station ID: [id number]
== END 2022-08-07 07:50 | disposition home or self-care (01) ==
LOC: DI.N 07:49
PROVIDERS: ATTEND Physician Assistant
DX: R91.1 Solitary pulmonary nodule (principal); I10 Essential (primary) hypertension; Z51.81 Encounter for therapeutic drug level monitoring; E78.5 Hyperlipidemia, unspecified; C61 Malignant neoplasm of prostate
CPT/HCPCS: 36415; 80053; 80061; 83721; 84153; 84443; 85025

== ENCOUNTER 2022-08-23 10:48 | Outpatient (CLI) | payer MEDICARE, BC ==
--- NOTE | 2022-08-23 16:20 | CT Report ---
PROCEDURE: CHEST WO INDICATIONS: PULMONARY NODULE TECHNIQUE: Noncontrast 1mm axial images were acquired from the pulmonary apices to the posterior costophrenic an gles. Axial 5 mm soft tissue kernel reconstructions were performed as well as 8 mm axial MIP and cor onal and sagittal 5 mm reformations. For radiation dose reduction, the following was used: automate d exposure control, adjustment of mA and/or kV according to patient size. COMPARISON: Chest x-ray 08/07/2022, chest CT 01/16/2020 FINDINGS: Image quality: Excellent. Lungs and pleura: 1.0 x 0.8 cm solid nodule in the subpleural anterolateral right lower lobe at a mi dlung level, 4/173, tethers adjacent pleural surfaces and has a minimally irregular margin. This has been stable for greater than 2 years in both size and morphology. 3 mm subpleural nodule is present i n the anterolateral left upper lobe at a midlung level, 4/173, also previously present and stable siz e. At the left lateral lung base, there is irregular reticulation and minor groundglass opacities. Th ere are no acute consolidations or pleural effusions. Central and peripheral airways are normal. Mediastinum: Heart size is normal. Moderate coronary artery calcification. No pericardial effusion. No mediastinal adenopathy by size criteria. Thoracic aorta and central pulmonary arteries are norm al in size. Esophagus is normal in caliber. No hiatal hernia. Bones and chest wall: No suspicious bony lesions. No vertebral body compression fractures. No axil macho or supraclavicular adenopathy by size criteria. The thyroid is normal in size and there are no incidental findings. Abdomen: The visible upper abdominal organs demonstrate a tiny hypodensity in the inferior right live r lobe, and a lobulated subcutaneous capsular hypodensity in segment 7, probably a hemangioma, measur ing about 2.3 cm, stable. Other upper abdominal organs appear normal. IMPRESSION: 1. A stable solid nodule with an average diameter of 9 mm in the right lower lobe. A 3 mm nodule in t he left upper lobe at the same axial level is also stable. These are benign given long-term stability . 2. Moderate coronary artery calcifications. 3. Chronic probable hepatic hemangioma. 4. Minimal fibrotic scarring present at the left posterior lung base. Reviewed by: Janette Mcfarland MD on 08/23/2022 3:18 PM [facility] Approved by: Janette Mcfarland MD on 08/23/2022 3:18 PM [facility] Station ID: [id number]
== END 2022-08-23 10:49 | disposition home or self-care (01) ==
LOC: DI 10:48
PROVIDERS: ATTEND Physician Assistant
DX: R91.8 Other nonspecific abnormal finding of lung field (principal); I25.10 Atherosclerotic heart disease of native coronary artery without angina pectoris

== ENCOUNTER 2023-03-24 12:15 | Outpatient (CLI) | payer BC, MEDICARE ==
--- NOTE | 2023-03-24 18:28 | XRAY Report ---
PROCEDURE: Chest 2 View X-Ray INDICATIONS: COUGH TECHNIQUE: 2 views of the chest were acquired. COMPARISON: CT 08/23/2022 FINDINGS: Surgical changes and devices: None. Lungs and pleura: No pleural effusions or pneumothorax. Lungs are clear. Mediastinum: Mediastinal contours appear normal. Heart size is normal. Bones and chest wall: No suspicious bony lesions. Overlying soft tissues appear unremarkable. IMPRESSION: No acute cardiopulmonary process. Reviewed by: Rodríguez Stauffer on 03/24/2023 5:27 PM [facility] Approved by: Rodríguez Stauffer on 03/24/2023 5:27 PM [facility] Station ID: [id number]
== END 2023-03-24 12:30 | disposition home or self-care (01) ==
LOC: DI.N 12:15
PROVIDERS: ATTEND Physician Assistant
DX: R05.8 Other specified cough (principal); R05.9 Cough, unspecified
CPT/HCPCS: 36415; 80053; 83880; 85025; 85379

== ENCOUNTER 2023-03-24 12:30 | Outpatient (CLI) | payer BC, MEDICARE ==
[2023-03-24 17:50] LABS: BASOPHILS # (AUTO) 0.1 10^3/uL (0.0-0.1); BASOPHILS % (AUTO) 0.4 %; EOSINOPHILS # (AUTO) 0.2 10^3/uL (0.0-0.7); HCT - HEMATOCRIT 40.9 % (42.0-52.0); HGB - HEMOGLOBIN 13.8 g/dL (14.0-18.0); LYMPHOCYTES # (AUTO) 0.8 10^3/uL (1.5-3.5); LYMPHOCYTES % (AUTO) 4.9 %; MEAN CORPUSCULAR HEMOGLOBIN 32.4 pg (27.0-31.0); MEAN CORPUSCULAR HGB CONC 33.7 g/dL (32.0-36.0); MEAN PLATELET VOLUME 9.7 fL (7.4-11.4); MONOCYTES # (AUTO) 1.4 10^3/uL (0.0-1.0); MONOCYTES % (AUTO) 8.7 %; NEUTROPHILS # (AUTO) 13.2 10^3/uL (1.5-6.6); NEUTROPHILS % (AUTO) 84.6 %; PLT - PLATELET COUNT 366 10^3/uL (130-450); RED BLOOD COUNT 4.26 10^6/uL (4.70-6.10); RED CELL DISTRIBUTION WIDTH 11.9 % (12.0-15.0); WHITE BLOOD COUNT 15.7 x10^3/uL (4.8-10.8)
[2023-03-24 18:04] LABS: BILIRUBIN,TOTAL 0.6 mg/dL (0.2-1.0); CALCIUM 8.6 mg/dL (8.5-10.3); CREATININE 0.7 mg/dL (0.6-1.2); POTASSIUM 4.3 mmol/L (3.5-5.0); TOTAL PROTEIN 6.8 g/dL (6.7-8.2)
[2023-03-24 18:05] LABS: ALBUMIN/GLOBULIN RATIO 0.8 (1.0-2.2)
== END 2023-03-24 12:45 | disposition home or self-care (01) ==
LOC: LAB.N 12:30
PROVIDERS: ATTEND Physician Assistant
DX: R05.9 Cough, unspecified (principal)
CPT/HCPCS: 36415; 80053; 83880; 85025; 85379

== ENCOUNTER 2023-03-25 08:49 | Emergency (ER) | payer MEDICARE ==
[2023-03-25 09:07] VITALS: BP 143/70
--- NOTE | 2023-03-25 09:46 | ED Physician Documentation ---
History of Present Illness - Stated complaint Stated Complaint: LT LEG SWELL - Chief complaint Chief Complaint: General - History obtained from History obtained from: Patient - History of Present Illness Timing: Today Pain level max: 0 Pain level now: 0 - Additonal information Additional information: 83-year-old male sent in by the walk-in clinic for an ultrasound of the left leg to rule out DVT. Patient states that he has had bilateral lower extremity swelling for "months". He states gets better when he elevates his legs, worse when he stands or sits for prolonged periods of time. No pain. His D-dimer was mildly elevated at 374.9. His age-adjusted D-dimer cutoff is 415. Review of Systems Constitutional: denies: Fever, Chills Ears: denies: Ear pain Nose: reports: Rhinorrhea / runny nose, Congestion Respiratory: reports: Cough (dry) GI: denies: Abdominal Pain, Nausea, Vomiting, Diarrhea : denies: Dysuria, Frequency, Hesitancy Skin: denies: Rash Musculoskeletal: denies: Neck pain, Back pain Neurologic: denies: Headache PD PAST MEDICAL HISTORY - Past Medical History Past Medical History: Yes Cardiovascular: Hypertension, High cholesterol Respiratory: None, Other Neuro: Tremors Endocrine/Autoimmune: None GI: Colon polyps : Benign prostate hypertrophy, Frequency HEENT: None Psych: None Musculoskeletal: None Derm: None - Past Surgical History Past Surgical History: Yes General: Appendectomy, Colonoscopy, Other Ortho: Other - Present Medications Home Medications: Ambulatory Orders Medication Instructions Recorded Confirmed Aspirin [Aspir 81] 81 mg PO QPM 12/13/13 09/12/21 Finasteride 5 mg PO DAILY 12/13/13 09/12/21 Losartan [Cozaar] 100 mg PO QPM 04/23/17 09/12/21 Simvastatin 10 mg PO QPM 04/23/17 09/12/21 hydroCHLOROthiazide [Hydrodiuril] 25 mg PO DAILY 04/23/17 09/12/21 amLODIPine [Norvasc] 10 mg PO DAILY 06/18/17 09/12/21 - Allergies Allergies/Adverse Reactions: Allergies Allergy/AdvReac Type Severity Reaction Status Date / Time No Known Drug Allergies Allergy Verified 03/25/23 09:06 - Social History Does the pt smoke?: No Smoking Status: Never smoker Does the pt drink ETOH?: Yes Does the pt have substance abuse?: No - Immunizations Immunizations are current?: Yes - POLST Patient has POLST: No PD ED PE NORMAL - Vitals Vital signs reviewed: Yes - General General: Alert and oriented X 3, No acute distress, Well developed/nourished - HEENT HEENT: Moist mucous membranes - Cardiac Cardiac: RRR - Respiratory Respiratory: No respiratory distress, Other (Mild crackles bilaterally) - Abdomen Abdomen: Soft, Non tender, Non distended - Derm Derm: Warm and dry - Extremities Extremities: Other (1+ bilateral lower extremity pitting edema. No calf tenderness or cord. No skin changes.) - Neuro Neuro: Alert and oriented X 3 - Psych Psych: Normal mood, Normal affect Results - Vitals Vitals: Vital Signs - 24 hr 03/25/23 09:04 Temperature 36.9 C Heart Rate 88 Respiratory 12 Rate Blood Pressure 143/70 H O2 Saturation 92 Oxygen O2 Source Room air - Rads (name of study) Duplex ultrasound left lower extremity Relevant Findings:: Final report received, See rad report PD Medical Decision Making - ED course Complexity details: reviewed results, re-evaluated patient, considered differential, d/w patient ED course: No DVT on ultrasound. Patient appears to have dependent edema in the bilateral lower extremities. No skin changes. Recommend elevation, compression and follow-up with PCP. Patient counseled regarding signs and symptoms for which I believe and urgent re-evaluation would be necessary. Patient with good understanding of and agreement to plan and is comfortable going home at this time This document was made in part using voice recognition software. While efforts are made to proofread this document, sound alike and grammatical errors may occur. Departure - Departure Disposition: 01 Home, Self Care Clinical Impression: Peripheral edema Condition: Good Instructions: ED Edema Legs Bilateral Follow-Up: your,doctor in 1 week [Other] Comments: Your ultrasound does not show evidence of blood clots today. Please follow-up with your doctor for further care of your edema. Return if you worsen Discharge Date/Time: 03/25/23 10:20
--- NOTE | 2023-03-25 10:27 | Ultrasound Report ---
PROCEDURE: Duplex Ext Veins Left INDICATIONS: LLE swelling TECHNIQUE: Real-time imaging, as well as color and pulse Doppler interrogation, were performed of the lower extr emity deep veins from the inguinal ligament to the popliteal fossa. COMPARISON: None. FINDINGS: The deep veins are normally compressible, and free of intraluminal thrombus. Color and pu lse Doppler demonstrate normal phasic intraluminal flow. There is normal augmentation response to di stal compression maneuver. IMPRESSION: No DVT. Reviewed by: Rodríguez Stauffer on 03/25/2023 9:26 AM [facility] Approved by: Rodríguez Stauffer on 03/25/2023 9:26 AM [facility] Station ID: [id number]
== END 2023-03-25 10:20 | disposition home or self-care (01) ==
LOC: ED 08:49
DX: R60.0 Localized edema (principal)
CPT/HCPCS: 99283; 99284

== ENCOUNTER 2023-04-14 12:21 | Outpatient (CLI) | payer MEDICARE | END 2023-04-14 12:22 | disposition home or self-care (01) | LOC: LAB.N 12:21 | PROVIDERS: ATTEND Physician Assistant | DX: Z12.5 Encounter for screening for malignant neoplasm of prostate (principal) | CPT/HCPCS: 36415; 81599; 84153 ==

== ENCOUNTER 2024-02-26 11:01 | Outpatient (CLI) | payer MEDICARE ==
--- NOTE | 2024-02-26 13:53 | XRAY Report ---
PROCEDURE: Lumbar Spine 2-3V INDICATIONS: CHONIC BACK PAIN TECHNIQUE: 2 views of the lumbar spine were acquired. COMPARISON: None. FINDINGS: Bones: 5 cvy-[id number]-[id number] vertebrae are present. Mild levocurvature of the lower lumbar spine. Diffus brandy decreased osseous mineralization. Straightening of normal lumbar lordosis. Mild retrolisthesis of L2 on L3. There are multilevel degenerative changes of the lumbar spine with facet arthropathy and d isc height loss with degenerative endplate changes and marginal spurring. No vertebral body compress ion fractures. No suspicious bony lesions. Soft tissues: Overlying bowel gas pattern is normal. No suspicious soft tissue calcifications. Athe rosclerotic vascular calcifications. 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 Consider MRI for further evaluation as cl inically indicated. Reviewed by: Jac Jimenez MD on 02/26/2024 1:52 PM PDT Approved by: Jac Jimenez MD on 02/26/2024 1:52 PM PDT Station ID: [id number]
== END 2024-02-26 11:02 | disposition home or self-care (01) ==
LOC: DI.N 11:01
PROVIDERS: ATTEND Physician Assistant
DX: M47.816 Spondylosis without myelopathy or radiculopathy, lumbar region (principal)

== ENCOUNTER 2024-03-26 14:04 | Outpatient (CLI) | payer MEDICARE ==
--- NOTE | 2024-03-28 09:22 | XRAY Report ---
PROCEDURE: Chest 2V INDICATIONS: ACUTE COUGH TECHNIQUE: 2 views of the chest were acquired. COMPARISON: Chest x-ray 03/24/2023 FINDINGS: Surgical changes and devices: None. Lungs and pleura: Consolidative opacity is present within the right base. Mild appearance of streaky opacities are present in the left base. Mediastinum: Mediastinal contours appear normal. Heart size is normal. Bones and chest wall: No suspicious bony lesions. Overlying soft tissues appear unremarkable. IMPRESSION: Right basilar consolidative opacity most suspicious for pneumonia. Recommend interval follow-up to do cument resolution and exclude presence of underlying mass of potential aggressive etiology such as ma lignancy. Streaky left basilar opacities possibly related to infection/inflammation or atelectasis. Reviewed by: Fidelia Miller MD on 03/28/2024 9:20 AM PDT Approved by: Fidelia Miller MD on 03/28/2024 9:20 AM PDT Station ID: [id number]
== END 2024-03-26 14:05 | disposition home or self-care (01) ==
LOC: DI 14:04
PROVIDERS: ATTEND Physician Assistant Medical
DX: R91.8 Other nonspecific abnormal finding of lung field (principal)

== ENCOUNTER 2024-04-14 12:46 | Outpatient (CLI) | payer MEDICARE ==
[2024-04-14 13:15] LABS: CALCIUM 9.4 mg/dL (8.5-10.3); CREATININE 0.8 mg/dL (0.6-1.3)
--- NOTE | 2024-04-14 16:00 | XRAY Report ---
PROCEDURE: Chest 2V INDICATIONS: ACUTE COUGH TECHNIQUE: 2 views of the chest were acquired. COMPARISON: Chest x-ray, 03/26/2024, 03/24/2023. FINDINGS: Surgical changes and devices: None. Lungs and pleura: Infiltrate in the right lower lobe is decreased. Left basilar scars and atelectasi s. Mild left hemidiaphragm elevation. No pleural effusions or pneumothorax. Mediastinum: Mediastinal contours appear normal. Heart size is normal. Bones and chest wall: No suspicious bony lesions. Overlying soft tissues appear unremarkable. IMPRESSION: Decreased right lower lobe pneumonia. Recommend continue follow-up to resolution. Reviewed by: Clarissa Young MD on 04/14/2024 2:59 PM AKDT Approved by: Clarissa Young MD on 04/14/2024 2:59 PM AKDT Station ID: [id number]
[2024-04-14 20:49] LABS: ESTIMATED AVERAGE GLUCOSE 103 mg/dL (70-100); HEMOGLOBIN A1c% 5.2 % (4.27-6.07)
== END 2024-04-14 12:47 | disposition home or self-care (01) ==
LOC: LAB 12:46
PROVIDERS: ATTEND Physician Assistant Medical
DX: C61 Malignant neoplasm of prostate (principal); R35.0 Frequency of micturition; R05.1 Acute cough; I10 Essential (primary) hypertension; R73.01 Impaired fasting glucose; J18.9 Pneumonia, unspecified organism
CPT/HCPCS: 36415; 80048; 83036; 84153

== ENCOUNTER 2024-06-01 12:54 | Outpatient (CLI) | payer MEDICARE ==
[2024-06-01 13:17] LABS: BASOPHILS # (AUTO) 0.1 10^3/uL (0.0-0.1); BASOPHILS % (AUTO) 0.8 %; EOSINOPHILS # (AUTO) 0.1 10^3/uL (0.0-0.7); EOSINOPHILS % (AUTO) 1.1 %; HCT - HEMATOCRIT 45.1 % (42.0-52.0); HGB - HEMOGLOBIN 15.2 g/dL (14.0-18.0); LYMPHOCYTES # (AUTO) 0.9 10^3/uL (1.5-3.5); LYMPHOCYTES % (AUTO) 11.9 %; MEAN CORPUSCULAR HEMOGLOBIN 31.9 pg (27.0-31.0); MEAN CORPUSCULAR HGB CONC 33.7 g/dL (32.0-36.0); MEAN CORPUSCULAR VOLUME 94.7 fL (80.0-94.0); MEAN PLATELET VOLUME 8.9 fL (7.4-11.4); MONOCYTES # (AUTO) 0.6 10^3/uL (0.0-1.0); MONOCYTES % (AUTO) 7.8 %; NEUTROPHILS # (AUTO) 5.8 10^3/uL (1.5-6.6); PLT - PLATELET COUNT 250 10^3/uL (130-450); RED BLOOD COUNT 4.76 10^6/uL (4.70-6.10); RED CELL DISTRIBUTION WIDTH 13.4 % (12.0-15.0); WHITE BLOOD COUNT 7.4 x10^3/uL (4.8-10.8)
[2024-06-01 13:36] LABS: ALBUMIN 3.8 g/dL (3.2-5.5); ALBUMIN/GLOBULIN RATIO 1.4 (1.0-2.2); BILIRUBIN,TOTAL 0.5 mg/dL (0.2-1.0); CALCIUM 9.3 mg/dL (8.5-10.3); CREATININE 0.8 mg/dL (0.6-1.3); POTASSIUM 4.2 mmol/L (3.5-4.5); TOTAL PROTEIN 6.6 g/dL (6.4-8.9)
[2024-06-01 13:52] LABS: THYROID STIMULATING HORMONE 2.24 uIU/mL (0.34-5.60)
[2024-06-01 13:58] LABS: FERRITIN 124.7 ng/mL (23.9-336.2)
[2024-06-01] MEDS: iohexoL-300 100 ML VIAL IVP ONE (14:24)
[2024-06-01] MEDS: DIATRIZOATE MEGLU/DIATRIZO SOD 30 ML BOTTLE PO ONE (14:26)
--- NOTE | 2024-06-01 17:14 | CT Report ---
PROCEDURE: Abdomen/Pelvis W INDICATIONS: EARLY SATIETY, WEIGHT LOSS CONTRAST: 100ml [id number] TECHNIQUE: After the administration of intravenous contrast, a CT scan of the abdomen and pelvis was performed. Images were recorded and evaluated at appropriate window settings. Reformats: coronal and sagittal. F or radiation dose reduction, the following was used: automated exposure control, adjustment of mA and /or kV according to patient size. COMPARISON: CT chest 08/23/2022 FINDINGS: Image quality: Diagnostic. Lower chest: Mild dependent changes are present within the bases, left greater than right. Liver: There are 2 low-attenuation foci within the liver the largest in the posterior right lobe casi uring 2.4 cm. Both are unchanged since 2020. Gallbladder: Unremarkable Biliary tree: No intrahepatic or extrahepatic dilation, accounting for age. Spleen: No splenomegaly. Pancreas: No pancreatic ductal dilation. Adrenals: No adrenal nodule. Kidneys and ureters: Heterogeneously enhancing mass appearing to be part of the right renal collectin g system measuring 4.6 x 7.8 cm series 2 image 70. This is not included within the [id number] on p rior exam. No obstruction. Simple left renal cyst. Stomach, bowel and peritoneum: No gastric or small bowel dilation. No abnormal wall thickening. No pa thologic free fluid. Lymph nodes: No central or retroperitoneal adenopathy. Vessels: No infrarenal aortic aneurysm. Patent portal vein. PELVIS Reproductive organs: Unremarkable. Bladder: Soft tissue density with calcifications is present within the posterior inferior bladder. It is noted that the prostate gland is enlarged. Pelvic lymph nodes: No pelvic adenopathy by size criteria. Bones: No aggressive osseous abnormality. Other: Fat-containing ventral hernia. Bilateral fat-containing inguinal hernias. IMPRESSION: Heterogeneous mass within the right kidney possibly within the collecting system raising concern for transitional cell versus renal cell carcinoma. Soft tissue mass with calcification is present in the posterior inferior bladder. This could be exten flor of the enlarged prostate, given renal findings, cystoscopy is recommended for further evaluation . Reviewed by: Fidelia Miller MD on 06/01/2024 5:13 PM PDT Approved by: Fidelia Miller MD on 06/01/2024 5:13 PM PDT Station ID: [id number]
--- NOTE | 2024-06-02 11:20 | XRAY Report ---
PROCEDURE: Chest 2V INDICATIONS: COUGH TECHNIQUE: 2 views of the chest were acquired. COMPARISON: 04/14/2024. FINDINGS: Surgical changes and devices: None. Lungs and pleura: No pleural effusions or pneumothorax. Elevation of the left hemidiaphragm with mil d left basilar atelectasis. Resolution of prior right lower lung opacity. Mediastinum: Mediastinal contours appear normal. Heart size is normal. Bones and chest wall: No suspicious bony lesions. Overlying soft tissues appear unremarkable. IMPRESSION: No acute cardiothoracic process. Resolution of prior right lower lung opacity. Elevation of the left hemidiaphragm with mild left basilar atelectasis. Reviewed by: Jac Hurley MD on 06/02/2024 11:18 AM PDT Approved by: Jac Hurley MD on 06/02/2024 11:18 AM PDT Station ID: [id number]
== END 2024-06-01 12:55 | disposition home or self-care (01) ==
LOC: LAB 12:54
PROVIDERS: ATTEND Physician Assistant
DX: R10.13 Epigastric pain (principal); R68.81 Early satiety; R63.4 Abnormal weight loss; R05.9 Cough, unspecified; N28.89 Other specified disorders of kidney and ureter; R93.41 Abnormal radiologic findings on diagnostic imaging of renal pelvis, ureter, or bladder; J98.11 Atelectasis
CPT/HCPCS: 36415; 71046; 74177; 80053; 82150; 82607; 82728; 83690; 84443; 85025; Q9967